=== PATIENT | male | born 1960 | race Caucasian/White ===

== ENCOUNTER 2018-12-14 09:43 | Emergency (ER) | payer MEDICAID, SELFPAY ==
[2018-12-14 09:46] VITALS: BP 150/111; PULSE 68; RESP 17; TEMP 36.6; O2SAT 97
--- NOTE | 2018-12-14 10:00 | EKG12_ITS ---
Test Reason : PALPS Blood Pressure : / mmHG Vent. Rate : 128 BPM Atrial Rate : 394 BPM P-R Int : 000 ms QRS Dur : 076 ms QT Int : 332 ms P-R-T Axes : 000 016 067 degrees QTc Int : 484 ms Atrial fibrillation with rapid ventricular response Abnormal ECG Confirmed by DWIGHT HERNANDEZ, LAZARO ([id number]), managing editor GUANAKITO CASH ([id number]) on 12/15/2018 1:22:03 PM Referred By: MIN Confirmed By:THEODORA QUINTANILLA MD
--- NOTE | 2018-12-14 10:04 | ED.RN ---
NO OLD EKG
--- NOTE | 2018-12-14 10:05 | RAD_ITS ---
STUDY: X-RAY CHEST REASON FOR EXAM: Male, 58 years old. Dyspnea. Arrhythmia. TECHNIQUE: Single AP portable view of the chest. COMPARISON: None. FINDINGS: EKG electrodes are seen. Increased markings at the lung bases worse at the left lung base. This may represent bibasilar atelectasis and/or early infiltrate. Follow-up is recommended. There is no demonstrated pleural abnormality. Normal size heart. Normal mediastinum and marielos. Normal visualized pulmonary arteries. Normal visualized aortic arch and descending thoracic aorta. Normal visualized thoracic spine. Normal visualized ribs, clavicles, and shoulders. There is no demonstrated abnormality of the visualized soft tissue structures of the upper abdomen. RAD/Chest 1 View (Portable) IMPRESSION: Increased markings at the lung bases worse on the left side as described. Follow-up is recommended. Electronically Signed: Tai Shearer, at 10:27 EDT , Service support ,
--- NOTE | 2018-12-14 10:09 | ED.DCSUM_ITS ---
- ER Visit Summary Date of Service: 12/14/18 Chief Complaint: [Palpitations] History of Present Illness: The patient is a 58 M [presents to the emergency department after being evaluated by primary care physician in the [facility]. Patient apparently has been without his Coumadin and has not taken his other medications for about a week. Patient was noted to be in A. fib RVR while in the office and referred to the ER. Patient also was complaining of chest pain shortness of breath and there was concern for PE. Patient states that his prior primary care physician was not responsive to his requests for medications and his records therefore he is making a switch to a new primary care physician. Patient states that he did not take his Coumadin for the last 6 days because he does not know what his Coumadin level was. He does complain of some chest congestion and a mild cough is mostly nonproductive. No significant chest pain otherwise. Patient denies recent travel or surgery. Patient does have history of hypertension, high cholesterol, A. fib, and history of skin cancer.] Physical Examination: [HEENT-PERRLA, EOMI. Cranial nerves II through XII grossly intact. TMs clear. Mucous membranes moist. No adenopathy. Cardiovascular-irregularly irregular and tachycardic with heart rates in the 140s. Murmurs auscultated. Lungs-clear to auscultation, chest wall stable without crepitus or subcu emphysema Abdomen-normoactive bowel sounds, soft, nontender, no rebound or rigidity, no peritoneal signs. Extremities-intact ?4, normal range of motion, normal pulses, atraumatic] Test Results: [EKG obtained on arrival showed atrial fibrillation with rapid ventricular response of 120 bpm with no acute segment changes. CBC with differential showing of 8.5, hemoglobin 14, hematocrit 46.5, platelets normal. Chemistries unremarkable. INR was 1.2. Troponin was less than 0.15. D-dimer was 0.77. CTA of the chest showed bilateral small effusions right greater than left and some bibasilar atelectasis versus infiltrate. Clinically I do not feel patient has pneumonia.] Emergency Department Course and Treatment: [She was given initially Cardizem 20 mg IV bolus followed by metoprolol 25 mill grams p.o. and his heart rates been in the 80s to 90s now.] Treatment Plan: [Patient has been noncompliant with his medications he is advised to get back on his Coumadin daily and have a repeat INR within the next 3 days. Patient to continue with his metoprolol and other medications which he has at home and has refills on. 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 It may contain incorrect words, spelling, and punctuation that were not noted in review of the chart prior to signing ED Disposition - Plan for ED Patient: Referrals: Erick Daily MD [Primary Care Provider] -
[2018-12-14] MEDS: 0.9% Normal Saline 1,000 ML 150 ML IV (10:27)
[2018-12-14] MEDS: dilTIAZem 25 MG/5 ML Vial 20 MG IV BOLUS (10:28)
[2018-12-14 10:32] VITALS: BP 146/91; PULSE 96; RESP 11; O2SAT 96
[2018-12-14 10:35] LABS: Absolute Neutrophil Count 6.3 X10^3/uL (2.0-7.7); Basophil# 0.03 X10^3/uL; Basophil% 0.4 % (0-1); Eosinophil# 0.14 X10^3/uL; Eosinophils% 1.6 % (0-5); Hematocrit 46.5 % (40-54); Hemoglobin 14.4 g/dL (13.0-16.5); Lymphocyte % 18.8 % (19-41); Mean Corpuscular Hgb 28.3 pg (27.0-32.0); Mean Corpuscular Volume 91.5 fL (80-94); Mean Platelet Vol. 11.6 fl (6.2-12.0); Monocyte# 0.47 X10^3/uL; Monocyte% 5.5 % (0-10); NRBC Flagged by Analyzer 0 % (0-5); Neutrophil # 6.26 X10^3/uL (2.7-7.7); Neutrophil % 73.5 % (47-70); Platelet Count 130 K/mm3 (150-450); RBC Distribution Width CV 14.2 % (11.6-14.6); Red Blood Count 5.08 M/mm3 (4.6-6.2); White Blood Count 8.5 K/mm3 (4.4-11.0)
[2018-12-14 10:36] LABS: International Normalized Ratio 1.2; Prothrombin Time (Protime)PT. 15.2 SECONDS (11.7-14.9)
[2018-12-14 10:40] LABS: D-Dimer Quantitative (DVT/PE) 0.77 FEU/ug/m (0.27-0.49)
--- NOTE | 2018-12-14 10:46 | CT_ITS ---
STUDY: CTA CHEST REASON FOR EXAM: Male, 58 years old. Dyspnea. Atrial fibrillation and hypertension. RADIATION DOSAGE (If Supplied By Facility): CTDIvol = ( 14.99 ) mGy, DLP = ( 550.10 ) mGycm TECHNIQUE: The examination was performed with the intravenous administration of 100 IV Isovue 370. Post-processing of the angiographic images was performed, with multiplanar reformation and 3D reconstruction. Individualized dose optimization techniques were used for this CT. COMPARISON: Comparison is made with prior chest radiograph done earlier today. FINDINGS: Small bilateral benign-appearing axillary lymph nodes. Normal enhancement of the main pulmonary artery and right and left pulmonary arteries. Normal enhancement of the bilateral peripheral pulmonary arteries. There is no demonstrated pulmonary embolism. There is atherosclerotic calcification of the aortic arch with tortuosity. There is no demonstrated aortic dissection. Normal heart and pericardium. There are visualized mediastinal lymph nodes, which are within normal size limits, and with normal morphology. Normal hilar regions. Normal visualized trachea and bronchi. The lungs are well expanded. Small bilateral pleural effusions right greater than left with bibasilar atelectasis and/or infiltrates. Normal pleura. Normal chest wall structures. There are degenerative changes of thoracic spine. Normal visualized upper abdomen. CT/CTA Chest W/WO Contrast IMPRESSION: Small bilateral pleural effusions right greater than left with bibasilar atelectasis and/or infiltrates. Electronically Signed: Tai Shearer, at 12:19 EDT , Service support ,
[2018-12-14 10:49] LABS: Anion Gap 4 (5-15); BUN 19 mg/dL (7-18); BUN/Creat Ratio 15.7 RATIO (10-20); Calcium,Total 8.9 mg/dL (8.5-10.1); Chloride 107 mmol/L (98-107); Creatinine, Serum 1.21 mg/dL (0.70-1.30); EST Glomerular Filtration Rate 65 mL/min (>60); Est Glom Filt Rate - Afr Amer 79 mL/min (>60); Glucose 103 mg/dL (74-106); Potassium 4.2 mmol/L (3.5-5.1); Sodium Level 140 mmol/L (136-145)
[2018-12-14] MEDS: Metoprolol Tartrate 25 MG Tablet PO (11:37)
[2018-12-14 12:00] VITALS: BP 152/111; PULSE 107; RESP 21; O2SAT 94
--- NOTE | 2018-12-14 12:43 | DCINST.ED_ITS ---
ED Disposition - Plan for ED Patient: Instructions: Atrial Fibrillation Referrals: Erick Daily MD [Primary Care Provider] - 3-5 Days Additional Instructions: see your traffic maintenance officer and take your medication regularly Have your coumadin level checked in 3 days
[2018-12-14 13:07] VITALS: BP 132/107; PULSE 96; RESP 25; O2SAT 92
== END 2018-12-14 13:21 | disposition home or self-care (01) ==
LOC: ED 10:27
PROVIDERS: Emergency Provider Emergency Medicine; Family Provider Family Medicine; PCP Family Medicine
DX: I48.2 Chronic atrial fibrillation (principal); J90 Pleural effusion, not elsewhere classified; Z91.14 Patient's other noncompliance with medication regimen; I10 Essential (primary) hypertension; E78.00 Pure hypercholesterolemia, unspecified; Z85.828 Personal history of other malignant neoplasm of skin; Z79.82 Long term (current) use of aspirin; Z79.01 Long term (current) use of anticoagulants; Z79.899 Other long term (current) drug therapy; F17.220 Nicotine dependence, chewing tobacco, uncomplicated
CPT/HCPCS: 71045; 71275; 80048; 84484; 85025; 85379; 85610; 93005; 96361; 96374; 99283; J7030; Q9967; A4216

== ENCOUNTER 2018-12-22 14:36 | Emergency (ER) | payer MEDICAID, SELFPAY ==
[2018-12-22 14:37] VITALS: BP 128/72; PULSE 89; RESP 16; TEMP 36.4; BMI 29.6
--- NOTE | 2018-12-22 15:04 | ED.DCSUM_ITS ---
History of Present Illness Chief Complaint: Abd Pain Informant: Patient Onset: Yesterday Narrative: Patient presents to the ED with reports of epigastric pain for 2 hours last night after eating. He states that the pain was sharp and constant. He took some ibuprofen. He went to bed and has been asymptomatic since. He states about a week ago, he was at this facility with a bout of atrial fibrillation with RVR. This was able to be controlled and he was able to be discharged home. He does take Coumadin and last had an INR checked 5 days ago. His next check is in 2 days. He denies any symptoms currently including chest pain, shortness of breath, abdominal pain, nausea, vomiting. He states that he is here because his PCP advised he be seen every time he has some time of chest pain. Past Medical History - Allergies and Home Meds Allergies/Adverse Reactions: Allergies No Known Allergies Allergy (Verified 12/22/18 14:39) Primary Care Physician: Erick Daily MD [Primary Care Provider] - Smoking Status: Current every day smoker Review of Systems General: Denies: Chills, Fever, Sweats Eyes: Denies: Visual changes - bilaterally, Diplopia ENT: Denies: Rhinorrhea, Sore throat Cardiovascular: Denies: Chest pain, Palpitations Respiratory: Denies: Dyspnea, Cough, Dyspnea on exertion Gastrointestinal: Reports: Abdominal pain - Epigastric. Denies: Nausea, Vomiting, Diarrhea, Melena, Hematochezia Genitourinary: Denies: Dysuria, Hematuria, Frequency Musculoskeletal: Denies: Back pain, Extremity Pain Skin: Denies: Rash, Wounds Neurological: Denies: Headache, Weakness, Numbness Physical Exam Vital Signs/Narrative: Vital Signs Temp Pulse Resp BP 12/22/18 14:37 97.5 F L 89 16 128/72 H General: Well nourished, Well developed, No Acute Distress Head: Normocephalic, Atraumatic Eyes: Perrl, EOMI ENT: Moist mucous membranes, No rhinorrhea Neck: Supple, Nontender Cardiovascular: Regular rate, Regular rhythm, No murmurs Respiratory: No distress, CTA bilaterally, Chest nontender Abdomen: Soft, Nondistended, Normal bowel sounds, Tender - Epigastric Back: Nontender, Normal Inspection Extremities: Nontender, No edema Skin: Normal color, No rash Neurological: Alert, Oriented x3, Cranial nerves II-XII grossly intact, Normal Strength, Normal Sensation Psychological: Normal affect, Normal Mood Diagnostic/Tx/Re-eval - EKG Initial EKG Interpretation: Atrial Fibrillation - With competing junctional pacemaker. QTc 467. No STEMI - Medical Decision Making Presents to the ED with epigastric pain for 2 hours last night and has been asymptomatic since then. He appears well and nontoxic. He has some mild epigastric tenderness to palpation on physical exam. EKG is unremarkable other than atrial fibrillation which patient is established with material distributor for. Troponin negative. Patient was given a GI cocktail. At this time, I think it is safe for the patient be discharged home. He was educated on return precautions to the ED. He was provided discharge instructions and agreeable to plan. Impression: Epigastric pain, uncertain etiology Disposition: Stable ED Disposition - Plan for ED Patient: Disposition: Home or Assisted Living Diagnosis: Epigastric pain Instructions: EPIGASTRIC PAIN (Uncertain cause) Referrals: Erick Daily MD [Primary Care Provider] -
--- NOTE | 2018-12-22 15:07 | EKG12_ITS ---
Test Reason : ABNL PAIN Blood Pressure : / mmHG Vent. Rate : 078 BPM Atrial Rate : 326 BPM P-R Int : 000 ms QRS Dur : 084 ms QT Int : 410 ms P-R-T Axes : 000 -02 033 degrees QTc Int : 467 ms Atrial fibrillation Septal MA, Age undetermined, cannot be excluded Abnormal ECG Confirmed by GLENNY HERNANDEZ, TERESSA ([id number]), pictures editor BREANNA THOMAS ([id number]) on 12/25/2018 3:16:58 PM Referred By: WICHO Confirmed By:TERESSA MURRIETA MD
[2018-12-22] MEDS: Mag Hydrox/Al Hydrox/Simeth 30 ML UDC PO (15:12)
[2018-12-22 15:53] VITALS: BP 121/96; PULSE 86; RESP 18; O2SAT 97
== END 2018-12-22 15:56 | disposition home or self-care (01) ==
PROVIDERS: Emergency Provider Physician Assistant; Family Provider Family Medicine; PCP Family Medicine
DX: R10.13 Epigastric pain (principal); I48.91 Unspecified atrial fibrillation; Z79.01 Long term (current) use of anticoagulants; Z79.82 Long term (current) use of aspirin; Z79.899 Other long term (current) drug therapy; F17.200 Nicotine dependence, unspecified, uncomplicated
CPT/HCPCS: 84484; 93005; 99282; A4216

== ENCOUNTER → 2023-07-22 | Outpatient (CLI) | payer MEDICAID, SELFPAY ==
--- NOTE | 2023-07-22 07:28 | MRI_ITS ---
STUDY: MRI LEFT SHOULDER REASON FOR EXAM: Male, 63 years old. Strain. TECHNIQUE: Standardized fat and water weighted pulse sequences were obtained in all 3 orthogonal planes. COMPARISON: None. FINDINGS: There is a suspected full-thickness tear of the anterior distal supraspinatus tendon insertion, overall measuring 6 mm in length (coronal T2 series 5 image 7) and 5 mm in width (axial T2 series 3 image 8). Normal infraspinatus tendon. There is subscapularis tendinosis. Normal teres minor tendon. Normal supraspinatus muscle. Normal infraspinatus muscle. Normal subscapularis muscle. Normal teres minor muscle. There is a tear of the posterior glenoid labrum (axial PD series 2 images 11-16). Normal glenohumeral articulation. Normal humeral head and visualized proximal humerus. Normal biceps labral complex. Normal intracapsular long biceps tendon. Normal rotator interval. There is hypertrophic acromioclavicular arthrosis, with inferior osteophyte formation, with mild effacement of the supraspinatus myotendinous junction (coronal PD series 4 image 6). There is a Type II morphology (curved), with a neutral orientation. There is a small amount of subacromial-subdeltoid bursal fluid. Normal visualized coracohumeral and coracoacromial ligaments. Normal quadrilateral space. Normal axillary space. Normal deltoid muscle. Normal trapezius muscle. MRI/Upper Ext Joint Only(Routine) IMPRESSION: Suspected 6 x 5 mm full-thickness tear of the anterior distal supraspinatus tendon insertion. Subscapularis tendinosis. Hypertrophic acromioclavicular arthrosis, with inferior osteophyte formation, with mild effacement of the supraspinatus myotendinous junction. Small amount of subacromial-subdeltoid bursal fluid. Tear of the posterior glenoid labrum. Electronically Signed: Scott Saucedo MD at 10:54 EDT ,
== END | disposition home or self-care (01) ==
PROVIDERS: PCP Family Medicine; Referring Provider Nurse Practitioner Family; Visit Provider Nurse Practitioner Family
DX: S46.912A Strain of unspecified muscle, fascia and tendon at shoulder and upper arm level, left arm, initial encounter (principal)
CPT/HCPCS: 73221

== ENCOUNTER 2024-03-17 12:40 | Emergency (ER) | payer MEDICAID, SELFPAY ==
[2024-03-17 12:41] VITALS: BP 142/81; PULSE 94; RESP 18; TEMP 35.9; O2SAT 100; BMI 34.9
--- NOTE | 2024-03-17 13:13 | EKG12_ITS ---
Test Reason : GENERAL Blood Pressure : */* mmHG Vent. Rate : 88 BPM Atrial Rate : * BPM P-R Int : * ms QRS Dur : 86 ms QT Int : 348 ms P-R-T Axes : * 6 70 degrees QTcB Int : 421 ms Atrial fibrillation Nonspecific ST and T wave abnormality Abnormal ECG Confirmed by KRISTA HERNANDEZ, RAYO ([id number]), make up editor TOD DURAN ([id number]) on 03/19/2024 6:33:25 AM Referred By: Confirmed By: RAYO VELASCO MD
--- NOTE | 2024-03-17 13:13 | RAD_ITS ---
EXAM: XR CHEST, 1 VIEW CLINICAL INDICATION: dyspnea TECHNIQUE: Frontal view of the chest. COMPARISON: XR Chest dated 12/14/2018 FINDINGS: LUNGS AND PLEURAL SPACES: No pulmonary consolidation. No pleural effusion or pneumothorax. HEART: Stable borderline cardiomegaly. MEDIASTINUM: No mediastinal or hilar mass. BONES/JOINTS: No acute abnormality. RAD/Chest 1 View (Portable) IMPRESSION: No acute cardiopulmonary abnormality. Electronically Signed: Cruz Braun MD at 15:28 EST ,
[2024-03-17] MEDS: Ondansetron 4 MG/2 ML Vial IV (13:26)
[2024-03-17] MEDS: Morphine 4 MG/ML Syringe IV (13:27)
--- NOTE | 2024-03-17 13:27 | EDS_ITS ---
<Statement entered by Julio C Reyna DO - 03/17/24 16:57> Patient was seen and examined with nurse vicky Dorsey All components of the history and physical confirmed and agreed. History of present illness and physical exam: Patient is a 63-year-old male with past medical history of atrial fibrillation on Xarelto who presents to the emergency department the chief complaint of worsening left shoulder pain. He states that this been going on for a significant mount time and noted that over the last several weeks he has also noted that he is having some left-sided chest discomfort and some shortness of breath. He states he has been compliant with his anticoagulation. He states that he had a cortisone shot in the past in his shoulder and this helped his symptoms. He states that he is scheduled to see his orthopedic doctor in 2 days. Patient states that he had a stress test approximately at least 4 years ago. Review of systems: Agree with above Physical exam: Agree with above MDM patient is a 63-year-old male who presented to the emerged part with a chief complaint of left shoulder pain. Patient will have a workup performed here on the differential diagnose includes but not limited to rotator cuff tear, cervical radiculopathy, ACS, stable angina once the workup is obtained reviewed he will be reevaluated. Patient's CBC was reviewed and showed a white blood count of 14,000, hemoglobin was stable at 15.9, platelet count normal at 167. Patient sodium normal at 138, potassium was low at 3 he was given 40 mill equivalents of potassium suppleme ntation here, creatinine normal at 1.05. Patient's troponin was obtained and was normal at 5 with a delta troponin obtained normal at 5. Patient's EKG reviewed and independently interpreted by myself. Patient's case was discussed with cardiology Dr. Acevedo by nurse practitioner Willian who states that the patient can follow-up with his orthopedic doctor in outpatient setting and have a outpatient stress test. Patient was encouraged to return with worsening symptoms or other concerns. He is agreeable to plan. Patient was given short prescription of pain medication for home. All question concerns answered bedside significant other bedside is agreeable this plan. Final impression: Left shoulder pain Chest pain Disposition: Patient will be discharged home in stable condition Supervising attending attestation: Julio C Ryena D.O. [facility] History of Present Illness Chief Complaint: Upper Extremity Injury Narrative Narrative: Patient is a 63-year-old male with history of atrial fibrillation, on anticoagulation medicine who presents to the [facility] for complaints of worsening left shoulder pain, as well as some pain going to his chest. He has noticed over the last several weeks, is been having left-sided chest pain as well as shortness of breath. Patient thinks is coming from his shoulder however he is unsure. Patient denies any fever chills nausea or vomiting. He does see his orthopedic in 2 days. [facility] Medical History Left rotator cuff tear Left shoulder pain Home Medications ?Medication ?Instructions ?Recorded ?Last Taken ?Type amlodipine 10 mg tablet 10 mg PO DAILY 12/14/18 Unknown History aspirin 81 mg tablet,delayed 81 mg PO DAILY 12/14/18 Unknown History release atorvastatin 20 mg tablet 20 mg PO QHS 12/14/18 Unknown History cetirizine 10 mg capsule 10 mg PO DAILY 12/14/18 Unknown History hydrochlorothiazide 25 mg tablet 25 mg PO DAILY 12/14/18 Unknown History lisinopril 5 mg tablet 5 mg PO DAILY 12/14/18 Unknown History metoprolol tartrate 50 mg tablet 50 mg PO DAILY 12/14/18 Unknown History gabapentin 600 mg tablet 600 mg PO DAILY 09/06/23 Unknown History rivaroxaban 20 mg tablet (Xarelto) 20 mg PO QDAY 09/06/23 Unknown History tizanidine 4 mg capsule 4 mg PO QHS PRN 09/06/23 Unknown History oxycodone-acetaminophen 5 mg-325 1 tab PO Q8H PRN pain 3 days #10 03/17/24 Unknown Rx mg tablet (Percocet) tabs Allergy/AdvReac Type Severity Reaction Status Date / Time No Known Allergies Allergy Verified 03/17/24 12:46 Family History Other Cancer Hypertension Surgical History H/O shoulder surgery Social History Smoking Status: Current every day smoker tobacco type: cigarettes alcohol intake: current alcohol intake frequency: holidays/special occasions only ROS ROS ED ROS Narrative Constitutional: Negative for fever, chills, weight loss, weakness Eyes: Negative for vision loss, vision change, double vision ENT: Negative for any sore throat, ear pain, congestion Cardiovascular: Negative for any tightness, palpitations. Positive for chest pain Respiratory: Negative for any cough, sputum production, hemoptysis, dyspnea on exertion, orthopnea. Positive for dyspnea Gastrointestinal: Negative for any abdominal pain, nausea, vomiting, diarrhea, constipation, blood in stool, blood in vomit : Negative for any urinary frequency, dysuria, retention, blood in urine Muscle skeletal: Negative for any neck pain, back pain. Positive for left shoulder pain Neurological: Negative for any headache, syncope, dizziness Skin: Negative for any rashes, itching, abrasions, lacerations Psychiatric: Negative for any depression, anxiety, stress, suicidal ideation, homicidal ideation Hematologic: Negative for any excessive bruising, easy bleeding EXAM Physical Exam Narrative Exam Narrative: Vital signs reviewed. HEET: Head normocephalic atraumatic, TMs clear bilaterally. Posterior pharynx is clear, moist mucous membranes. Nares clear bilaterally. Neck: Supple with no lymphadenopathy or tenderness. No signs of meningismus. Cardiac: Regular rate and rhythm no murmurs gallops or rubs, equal peripheral pulses bilaterally. Respiratory: Lungs clear to auscultation bilaterally. No chest tenderness. Abdomen: Soft, nontender, nondistended. No abdominal bruit or pulsatile masses. No hepatosplenomegaly Extremities: No peripheral edema, no signs of gross trauma or deformity. Decreased range of motion to the left shoulder. Pain on palpation to the anterior aspect. Pain can go down his left arm. Equal keypuncher strength. Neuro: Cranial nerves II through XII intact, no focal neurological deficits. Skin: Clean dry and intact with no rash, purpura, petechiae, vesicles or pustules. Backs/flank: No CVA tenderness, no midline spinal tenderness, no deformity. Psych: Normal mood and affect. No SI, HI or acute psychosis. Const Vital Signs: 03/17/24 12:41 Temperature 96.7 F L Temperature Source Temporal Pulse Rate 94 Respiratory Rate 18 Blood Pressure 142/81 H Blood Pressure Mean 101 Pulse Ox 100 Oxygen Delivery Method Room Air [facility] EKG Atrial fibrillation: Attestation: I personally reviewed and interpreted this EKG as follows: Interpretation: Atrial Fibrillation Comments: Atrial fibrillation with a rate of 88 bpm, QRS duration 86 ms, no acute ST elevation, no acute infarct noted. Treatment and Re-Evaluation Narrative: Differential diagnosis includes however is not limited to: Internal derangement, left shoulder, rotator cuff, cervical radiculopathy, ACS, [place], unstable angina Patient appears generally well, vital signs are stable, patient is nontoxic- appearing. Presenting to the emergency department for complaints of left shoulder pain all her concerns for left-sided chest pain. I spoke with the patient at length, I do believe this is muscle skeletal in nature. Patient does have close follow-up with his orthopedic in 2 to 3 days. Patient will be given an IV, IV morphine, Zofran he will be reevaluated. Basic laboratory values as well as EKG will be obtained. Chest x-ray will be ordered. All radiologic examinations were read, reviewed by the emergency department attending. From these reads, a plan of care will be put in place. Patient's laboratory values showed a slight leukocytosis with a white blood count of 14.5 however this is secondary the patient currently being on steroids for his left shoulder. Patient's chemistries show a slight low potassium at 3.0, I was able to provide the patient with potassium orally. Initial troponin was 5, repeat was 5. Patient's urinalysis does show a stable A-fib. Patient has not had a stress test since 2016. I will reach out to cardiology for evaluation with close follow-up. Spoke with cardiology, at this time, patient will follow-up outpatient. I spoke with the patient regarding this, he is agreeable. Patient will also continue to follow-up with his orthopedic doctor next 2 to 3 days. All questions were answered, patient stable for discharge. Patient be given a short course of pain medicine for home. Discharge Plan Triage Chief Complaint: Upper Extremity Injury ED Midlevel Provider: Willian Vivar ED Provider: Julio C Reyna Dx/Rx/DC Orders Clinical Impression: Left shoulder pain, Chest pain Instructions: ED Arthralgia, ED Chest Pain, Uncertain Cause, ED Shoulder Pain, Uncertain Cause Prescriptions: New oxycodone-acetaminophen [Percocet] 5-325 mg tablet 1 tab PO Q8H PRN (Reason: pain) 3 Days Qty: 10 0RF No Action Xarelto 20 mg tablet 20 mg PO QDAY tizanidine 4 mg capsule 4 mg PO QHS PRN gabapentin 600 mg tablet 600 mg PO DAILY atorvastatin 20 MG tablet 20 mg PO QHS aspirin 81 MG tablet,delayed release (DR/EC) 81 mg PO DAILY amlodipine 10 MG tablet 10 mg PO DAILY metoprolol tartrate 50 MG tablet 50 mg PO DAILY lisinopril 5 MG tablet 5 mg PO DAILY hydrochlorothiazide 25 MG tablet 25 mg PO DAILY cetirizine 10 MG capsule 10 mg PO DAILY Primary Care Provider: Erick Daily Referrals: Johnnie Acevedo MD [Med Staff - Active Staff] - Erick Daily MD [Primary Care Provider] - Activity Restrictions/Additional Instructions: Please follow-up outpatient. You need to return for any worsening chest pain. Continue following up with orthopedic. Print Language: Citizen Of [place] Disposition Disposition: Home, Self Care
[2024-03-17 13:52] LABS: Anion Gap 5 (5-15); BUN 27 mg/dL (7-18); BUN/Creat Ratio 25.7 RATIO (10-20); Calcium,Total 9.3 mg/dL (8.5-10.1); Chloride 102 mmol/L (98-107); Creatinine, Serum 1.05 mg/dL (0.70-1.30); EST Glomerular Filtration Rate 75 mL/min (>60); Est Glom Filt Rate - Afr Amer 91 mL/min (>60); Estimated Creatinine Clearance 88.54 ml/min; Glucose 129 mg/dL (74-106); Sodium Level 138 mmol/L (136-145); Troponin-I HS 5 pg/mL (3.0-78.0)
[2024-03-17 14:02] LABS: Absolute Lymphocyte Count 2.04 X10^3/uL (0.83-4.51); Absolute Neutrophil Count 10.7 X10^3/uL (2.0-7.7); Basophil# 0.11 X10^3/uL; Basophil% 0.8 % (0-1); Eosinophil# 0.09 X10^3/uL; Eosinophils% 0.6 % (0-5); Hematocrit 48.2 % (40-54); Hemoglobin 15.9 g/dL (13.0-16.5); Lymphocyte # 2.04 X10^3/ul (0.83-4.51); Lymphocyte % 14.1 % (19-41); Mean Corpuscular Hgb 29.1 pg (27.0-32.0); Mean Corpuscular Volume 88.1 fL (80-94); Mean Platelet Vol. 11.3 fl (6.2-12.0); Monocyte% 8.3 % (0-10); NRBC Flagged by Analyzer 0 % (0-5); Neutrophil # 10.71 X10^3/uL (2.7-7.7); Neutrophil % 73.7 % (47-70); Platelet Count 167 K/mm3 (150-450); RBC Distribution Width CV 14.4 % (11.6-14.6); RBC Distribution Width SD 45.9 fl (35.1-43.9); Red Blood Count 5.47 M/mm3 (4.6-6.2); White Blood Count 14.5 K/mm3 (4.4-11.0)
[2024-03-17] MEDS: Potassium Chloride Oral Tablet 20 MEQ 40 MEQ PO (15:42)
[2024-03-17 16:29] LABS: Troponin-I HS 5 pg/mL (3.0-78.0)
[2024-03-17 16:41] VITALS: BP 146/98; PULSE 83; RESP 16; O2SAT 98
[2024-03-17 16:43] VITALS: BP 146/98; PULSE 83; RESP 16; TEMP 36.8; O2SAT 98
== END 2024-03-17 16:46 | disposition home or self-care (01) ==
PROVIDERS: Nurse Practitioner; Emergency Provider Emergency Medicine; PCP Family Medicine; Visit Provider Emergency Medicine
DX: R07.9 Chest pain, unspecified (principal); I48.91 Unspecified atrial fibrillation; M25.512 Pain in left shoulder; Z79.01 Long term (current) use of anticoagulants; F17.210 Nicotine dependence, cigarettes, uncomplicated
CPT/HCPCS: 71045; 80048; 84484; 85025; 93005; 96374; 96375; 99283; A4216; J2405

== ENCOUNTER → 2024-04-20 | Outpatient (CLI) | payer MEDICAID, SELFPAY ==
--- NOTE | 2024-04-20 13:35 | RAD_ITS ---
EXAM: XR CERVICAL SPINE, 2 OR 3 VIEWS CLINICAL INDICATION: Cervical radiculopathy TECHNIQUE: Frontal and lateral views of the cervical spine. COMPARISON: No relevant prior studies available. FINDINGS: VERTEBRAE: Loss of the normal cervical lordosis which may be due to muscle spasm or head positioning. No acute fracture or subluxation. Disc space narrowing and vertebral body hypertrophy noted at C5-6 and C6-7. Multilevel facet arthropathy. DISC SPACES: See above. SOFT TISSUES: Soft tissue calcification noted on the lateral view may be within the submandibular space. Salivary duct stone to BE excluded. No prevertebral soft tissue widening. LUNG APICES: Clear. OTHER FINDINGS: Nuchal calcification noted related to remote trauma. RAD/Cerv Spine 2 or 3 Views IMPRESSION: 1. No acute fracture or subluxation. 2. Loss of the normal cervical lordosis which may be due to muscle spasm or head positioning. 3. Disc space narrowing and vertebral body hypertrophy noted at C5-6 and C6-7. Multilevel facet arthropathy. 4. Soft tissue calcification noted on the lateral view may be within the submandibular space. Salivary duct stone to BE excluded. Electronically Signed: Cruz Braun MD at 11:07 EST ,
== END | disposition home or self-care (01) ==
LOC: RAD 13:27
PROVIDERS: PCP Nurse Practitioner Family; Referring Provider Anesthesiology; Visit Provider Anesthesiology
DX: M54.12 Radiculopathy, cervical region (principal)
CPT/HCPCS: 72040

== ENCOUNTER → 2024-07-17 | Outpatient (CLI) | payer MEDICAID, SELFPAY ==
[2024-07-17 17:30] LABS: ALB/GLOB Ratio 1.6 RATIO (0.9-2.4); AST(SGOT) 30 U/L (<=37); Alanine Aminotransfer ALT/SGPT 20 U/L (<=46); Albumin, Serum 4.3 g/dL (3.4-4.8); Alkaline Phosphatase 71 U/L (40-129); Anion Gap 15 (5-15); BUN 20 mg/dL (4-19); BUN/Creat Ratio 15.9 RATIO (10-20); Calcium,Total 9.7 mg/dL (7.6-11.0); Carbon Dioxide 24.8 mmol/L (21.0-32.0); Chloride 101 mmol/L (98-108); Cholesterol 116 mg/dL (<=200); Creatinine, Serum 1.27 mg/dL (0.70-1.20); EST Glomerular Filtration Rate 63 (>60); Globulin 2.7 g/dL (2.2-4.2); Glucose 104 mg/dL (70-99); High Density Lipoprotein 45 mg/dL; Low Density Lipoprotein Calc. 55 mg/dL; Potassium 3.3 mmol/L (3.3-5.1); Sodium Level 140 mmol/L (133-145); Total Bilirubin 0.87 mg/dL (0.00-1.30); Triglycerides 78 mg/dL; Very Low Density Lipoprotein 16 mg/dL (5-40); cholesterol:hdl ratio screen 2.56
== END | disposition home or self-care (01) ==
LOC: LAB 12:31
PROVIDERS: PCP Nurse Practitioner Family; Referring Provider Internal Medicine Cardiovascular Disease; Visit Provider Internal Medicine Cardiovascular Disease
DX: I10 Essential (primary) hypertension (principal); E78.5 Hyperlipidemia, unspecified
CPT/HCPCS: 36415; 80053; 80061

== ENCOUNTER → 2024-09-15 | Outpatient (CLI) | payer MEDICAID, SELFPAY ==
--- OUTSIDE RECORDS SUMMARY | 2024-09-15 07:19 | XMS RPT_ITS | CCD ---
Author Organization [facility] ion [facility] Care Team Providers Care Sheet Metal Helper Name Role Phone Erick Daily MD Primary Care Provider BOLIVAR ZAMARRIPA APRN Consulting Unavailable SERAFIN WILLIAM MD Admitting Unavailable SERAFIN WILLIAM MD Primary Care Unavailable SERAFIN WILLIAM MD Attending Unavailable PROVIDER, UNKNOWN Consulting Unavailable ARNULFO ALEJANDRO Admitting Unavailable ARNULFO ALEJANDRO Primary Care Unavailable ARNULFO ALEJANDRO Attending Unavailable BOLIVAR ZAMARRIPA APRN Consulting Unavailable PROVIDER, UNKNOWN Consulting Unavailable Chidi, Xenia Attending Unavailable Erick Daily Referring Unavailable Bolivar Zamarripa Primary Care Unavailabl Bolivar Edouard Primary Care Unavailabl e Chidi, Xenia Attending Unavailable Bolivar Zamarripa Referring UnavailFredrick Segovia Attending Unavailable Erick Daily Referring Unavailable Elderbromariam, Erick Primary Care Unavailable Johnnie Acevedo Attending Unavailable Killian, Erick Primary Care Unavailable Fredrick Santos Attending Unavailable Erick Daily Referring Unavailable Killian, Erick Primary Care Unavailable Fredrick Santos Attending Unavailable Erick Daily Referring Unavailable Elderbromariam, Erick Primary Care Unavailable Fredrick Santos Attending Unavailable Erick Daily Referring Unavailable Eldermarley, Erick Primary Care Unavailable Chidi, Xenia Attending Unavailable Bolivar Zamarripa Referring Unavailabl e Bolivar Zamarripa Primary Care UnavailFredrick Segovia Attending Unavailable Killian, Erick Primary Care Unavailable ElderErick roach Referring Unavailable Julio C Reyna Attending Unavailable Eldermarley, Erick Primary Care Unavailable Bolivar Zamarripa Primary Care Unavailabl e Chidi, Xenia Referring Unavailable Chidi, Xenia Attending Unavailable Serafin William Referring Unavailable Serafin William Attending Bolivar Gonzalez Primary Care Unavailabl e Medications Current Medications Medication Drug Class(es) Dates Sig (Normalized) Sig (Original) aspirin 81 mg delayed release oral tablet (1 source) Platelet Aggregation Inhibitor, Nonsteroidal Anti-inflammatory Drug Start: 12-14-2018 take 81 mg by mouth once daily Aspirin Active 81 MG PO DAILY December 14, 2018 12:00am cetirizine hydrochloride 10 mg oral capsule (1 source) Histamine-1 Receptor Antagonist Start: 12-14-2018 take 10 mg by mouth once daily Cetirizine Active 10 MG PO DAILY December 14, 2018 12:00am Completed/Discontinued Medications Medication Drug Class(es) Dates Sig (Normalized) Sig (Original) amLODIPine 10 mg oral tablet (2 sources) Dihydropyridine Calcium Channel Jayro Start: 12-15-19 take 1 tablet by mouth once daily amLODIPine (NORVASC) 10 mg tablet Indications: Hypertension, essential Take 1 tablet by mouth once daily. For Blood Pressure 90 tablet 3 12/26/2019 Active Comment on above: Take 1 tablet by reuben th once daily. For Blood Pressure atorvastatin 20 mg oral tablet (2 sources) HMG-CoA Reductase Inhibitor Start: 12-15-19 take 1 tablet by mouth once daily for hyperlipidemia atorvastatin (LIPITOR) 20 mg tablet Indications: Hyperlipidemia, mixed , Hypertension, essential Take 1 tablet by mouth once daily. For Cholesterol 90 tablet 3 12/26/2019 Active Comment on above: Take 1 tablet by reuben th once daily. For Cholesterol FLUoxetine 20 mg oral capsule (1 source) Serotonin Reuptake Inhibitor Start: 03-30-19 take 1 capsule by mouth once daily FLUoxetine (PROZAC) 20 mg capsule Indications: Irritability and anger Take 1 capsule by mouth once daily. 30 capsule 2 03/30/2019 Active Comment on above: Take 1 capsule by mo [facility] once daily. hydroCHLOROthiazide 25 mg oral tablet (2 sources) Thiazide Diuretic Start: 12-15-19 take 1 tablet by mouth once daily hydroCHLOROthiazide (HYDRODIURIL, ESIDRIX) 25 mg tablet Indications: Hypertension, essential Take 1 tablet by mouth once daily. For Blood Pressure 90 tablet 3 12/26/2019 Active Comment on above: Take 1 tablet by reuben th once daily. For Blood Pressure lisinopril 5 mg oral tablet (2 sources) Angiotensin Converting Enzyme Inhibitor Start: 12-15-19 take 1 tablet by mouth once daily lisinopril (ZESTRIL, PRINIVIL) 5 mg tablet Indications: Hypertension, essential Take 1 tablet by mouth once daily. For Blood Pressure 90 tablet 3 12/26/2019 Active Comment on above: Take 1 tablet by reuben th once daily. For Blood Pressure 24 hr metoprolol succinate 50 mg extended release oral tablet (2 sources) beta-Adrenergic Jayro Start: 12-26-19 take 1 tablet by mouth once daily metoprolol succinate ER (TOPROL XL) 50 mg 24 hr tablet Indications: Hypertension, essential Take 1 tablet by mouth once daily. For Blood Pressure 90 tablet 3 12/26/2019 Active Start: 12-14-2018 take 50 mg by mouth once daily Metoprolol Tartrate Active 50 MG PO DAILY December 14, 2018 12:00am Comment on above: Take 1 tablet by reuben th once daily. For Blood Pressure warfarin sodium 4 mg oral tablet (3 sources) Vitamin K Antagonist Start: 02-19-2019 take 1 tablet by mouth once daily warfarin (COUMADIN) 1 mg tablet Take 1 tablet by mouth daily as directed. 30 tablet 2 02/19/2019 Active Start: 12-14-2018 take 1 tablet by reuben th once daily warfarin (COUMADIN) 4 mg tablet Indications: Paroxysmal atrial fibrillation (HCC) Take 1 tablet by mouth once daily. Or as directed. 30 tablet 5 12/26/2019 Active Comment on above: Take 1 tablet by reuben th daily as directed. Take 1 tablet by reuben th once daily. Or as directed. Problems Active Problems Problem Classification Problem Date Documented Da te Episodic/Chronic Abdominal pain (1 source) Epigastric pain; Translations: [Epigastric pain] 12-23-2018 Episodic Cardiac dysrhythmias (3 sources) Paroxysmal atrial fibrillation; Translations: [Paroxysmal atrial fibrillation] Onset: 12-27-2018 12-27-2018 Chronic Disorders of lipid metabolism (3 sources) Hyperlipidemia; Translations: [Hyperlipidemia, unspecified] Onset: 07-19-2024 02-16-2019 Chronic Essential hypertension (3 sources) Hypertensive disorder; Translations: [Essential (primary) hypertension] Onset: 07-19-2024 02-16-2019 Chronic Other connective tissue disease (1 source) Complete rotator cuff tear or rupture of left shoulder, not specified as traumatic; Translations: [Complete rotator cuff tear or rupture of left shoulder, not specified as traumatic] Onset: 05-14-2024 Episodic Other nutritional; endocrine; and metabolic disorders (1 source) Obesity, unspecified; Translations: [Obesity, unspecified] Onset: 08-15-2024 Chronic Peripheral and visceral atherosclerosis (1 source) Unspecified atherosclerosis; Translations: [Unspecified atherosclerosis] Onset: 08-15-2024 Chronic Residual codes; unclassified (1 source) Obstructive sleep apnea syndrome; Translations: [Obstructive sleep apnea (adult) (pediatric)] 02-16-2019 Chronic Residual codes; unclassified (1 source) Obstructive sleep apnea (adult) (pediatric); Translations: [Obstructive sleep apnea (adult) (pediatric)] Onset: 08-15-2024 Chronic Substance-related disorders (1 source) Nicotine dependence, unspecified, uncomplicated; Translations: [Nicotine dependence, unspecified, uncomplicated] Onset: 08-15-2024 Chronic Unclassified (1 source) Chronic atrial fibrillation, unspecified; Translations: [Chronic atrial fibrillation, unspecified] Onset: 08-15-2024 Unclassified (1 source) Other persistent atrial fibrillation; Translations: [Other persistent atrial fibrillation] Onset: 08-15-2024 Past or Other Problems Problem Classification Problem Date Documented Da te Episodic/Chronic Nonspecific chest pain (1 source) Chest pain, unspecified; Translations: [Chest pain, unspecified] Onset: 04-18-2024 Episodic Other aftercare (1 source) Drug therapy finding; Translations: [Encounter for therapeutic drug level monitoring] Onset: 12-27-2018 12-27-2018 Episodic Other connective tissue disease (1 source) Unspecified rotator cuff tear or rupture of left shoulder, not specified as traumatic; Translations: [Unspecified rotator cuff tear or rupture of left shoulder, not specified as traumatic] Onset: 03-20-2024 Episodic Other non-epithelial cancer of skin (1 source) Squamous cell carcinoma of skin of trunk; Translations: [Squamous cell carcinoma of skin of other part of trunk] Onset: 12-27-2018 12-27-2018 Episodic Other non-traumatic joint disorders (1 source) Pain in left shoulder; Translations: [Pain in left shoulder] Onset: 01-19-2024 Episodic Spondylosis; intervertebral disc disorders; other back problems (4 sources) Radiculopathy, cervical region; Translations: [Radiculopathy, cervical region] Onset: 05-11-2024 Episodic Results Test Name Value Interpretation Reference Range Facility CBC + DIFFon 07-19-2024 Baso # 0.02 x10EE3/UL Normal 0.00 - 0.10 [facility] Comment on above: Performed By: #### 2 [id number] #### [facility],[address] [place] [address] 02033 Basophils/100 WBC (Bld) 0.3 % Normal 0.0 - 2.0 [facility] Comment on above: Performed By: #### 2 03150 #### [facility],[address] [place] [address] 29100 CBC + DIFF Normal [facility] Comment on above: Result Comment: CBC- COMPLETE BLOOD COUNT Performed By: #### 2 [id number] #### [facility],[address] [place] [address] 85098 EO # 0.17 x10EE3/UL Normal 0.00 - 0.50 [facility] Comment on above: Performed By: #### 2 27327 #### [facility],[address] [place] [address] 68607 Eosinophils/100 WBC (Bld) 2.6 % Normal 0.0 - 7.0 [facility] Comment on above: Performed By: #### 2 13103 #### [facility],[address] [place] [address] 46238 Erythrocyte distribution width (RBC) [Ratio] 13.5 % Normal 12.0 - 15.6 [facility] Comment on above: Performed By: #### 2 17928 #### [facility],[address] [place] [address] 85842 Hematocrit (Bld) [Volume fraction] 42.6 % Normal 40.0 - 52.0 [facility] Comment on above: Performed By: #### 2 21596 #### [facility],[address] [place] [address] 99826 Hemoglobin (Bld) [Mass/Vol] 14.7 g/dL Normal 13.0 - 17.5 [facility] Comment on above: Performed By: #### 2 38905 #### [facility],[address] [place] [address] 76827 Lymph # 1.61 x10EE3/UL Normal 0.80 - 2.80 [facility] Comment on above: Performed By: #### 2 94299 #### [facility],[address] [place], [place] [address] Lymphocytes/100 WBC (Bld) 24.2 % Normal 20.0 - 45.0 [facility] Comment on above: Performed By: #### 2 71461 #### [facility],[address] [place], [place] [address] MANUAL DIFF N/A Normal [facility] Comment on above: Performed By: #### 2 81594 #### [facility],[address] [place] [address] MCH (RBC) [Entitic mass] 30 pg Normal 27 - 33 [facility] Comment on above: Performed By: #### 2 35075 #### [facility],[address] [place] [address]21 MCHC 34 X10 3 Normal 32 - 36 [facility] Comment on above: Performed By: #### 2 72783 #### [facility],[address] [place] [address] 13277 MCV (RBC) [Entitic vol] 87 fL Normal 81 - 98 [facility] Comment on above: Performed By: #### 2 30589 #### [facility],[address] [place] [address] 76635 Winona # 0.55 x10EE3/UL Normal 0.20 - 1.00 [facility] Comment on above: Performed By: #### 2 87774 #### [facility],[address] [place] [address] 46389 MONOS % 8.3 % Normal 0.0 - 10.0 [facility] Comment on above: Performed By: #### 2 53271 #### [facility],[address] [place] [address] 50258 Morphology Jose (Bld) [Interp] N/A Normal [facility] Comment on above: Performed By: #### 2 72510 #### [facility],[address] [place] [address] 87504 Neut # 4.32 x10EE3/UL Normal 1.50 - 7.10 [facility] Comment on above: Performed By: #### 2 24982 #### [facility],[address] [place] [address] 81718 Neutrophils/100 WBC (Bld) 64.7 % Normal 46.0 - 76.0 [facility] Comment on above: Performed By: #### 2 01394 #### [facility],[address] [place] [address] 85677 PLATELET 165 x10EE3/UL Normal 150 - 450 [facility] Comment on above: Performed By: #### 2 74125 #### [facility],[address] [place] [address] 26934 Platelet mean volume (Bld) [Entitic vol] 10.9 fL High 6.4 - 10.5 [facility] Comment on above: Result Comment: AUTO MATED DIFFERENTIAL Performed By: #### 2 75503 #### [facility],[address] [place] [address] 90253 RBC 4.90 x 10EE6/UL Normal 4.50 - 6.00 [facility] Comment on above: Performed By: #### 2 07128 #### [facility],[address] [place] [address] 61002 WBC 6.7 x 10EE3/UL Normal 4.5 - 10.8 [facility] Comment on above: Performed By: #### 2 35517 #### [facility],[address] [place] [address] 89758 CMP with eGFRon 04-24-2025 AGE 64 years Normal [facility] Comment on above: Performed By: #### 2 37964 #### [facility],[address] [place] [address] 83164 Albumin [Mass/Vol] 3.9 g/dL Normal 3.4 - 5.0 [facility] Comment on above: Performed By: #### 2 72223 #### [facility],[address] [place] [address] 23038 Albumin/Globulin [Mass ratio] 1.3 {ratio} Normal 0.9 - 1.6 [facility] Comment on above: Performed By: #### 2 42682 #### [facility],[address] [place] [address] 34896 ALK PHOS 81 U/L Normal 46 - 116 [facility] Comment on above: Performed By: #### 2 97270 #### [facility],[address] [place] [address] 81927 ALT [Catalytic activity/Vol] 29 U/L Normal 16 - 63 [facility] Comment on above: Performed By: #### 2 71632 #### [facility],[address] [place] [address] 25214 Anion gap [Moles/Vol] 13 mmol/L Normal 10 - 20 [facility] Comment on above: Performed By: #### 2 19333 #### [facility],[address] [place] [address] 02055 AST [Catalytic activity/Vol] 29 U/L Normal 15 - 37 [facility] Comment on above: Performed By: #### 2 47149 #### [facility],[address] [place] [address] 51900 B/C RATIO 21 ratio Normal 0 - 30 [facility] Comment on above: Performed By: #### 2 96578 #### [facility],[address] [place] [address] 74523 Bilirubin [Mass/Vol] 0.9 mg/dL Normal 0.2 - 1.0 [facility] Comment on above: Performed By: #### 2 37882 #### [place] [address] Calcium [Mass/Vol] 9.3 mg/dL Normal 8.5 - 10.1 [facility] Comment on above: Performed By: #### 2 84584 #### [facility],[address] [place] [address] Chloride [Moles/Vol] 106 mmol/L Normal 98 - 107 [facility] Comment on above: Performed By: #### 2 94326 #### [place] [address] CMP with eGFR Normal [facility] Comment on above: Result Comment: COMP REHENSIVE METABOLIC PANEL Performed By: #### 2 97333 #### [place] [address] CO2 [Moles/Vol] 28.8 mmol/L Normal 21.0 - 32.0 [facility] Comment on above: Performed By: #### 2 78042 #### [place] [address] Creatinine [Mass/Vol] 1.10 mg/dL Normal 0.70 - 1.30 [facility] Comment on above: Performed By: #### 2 01257 #### [place] [address] GFR/1.73 sq M.predicted among non-blacks MDRD (S/P/Bld) [Vol rate/Area] mL/min/{1.73_m2} Normal 60 - 999 [facility] Comment on above: Performed By: #### 2 03507 #### [place] [address] Result Comment: ACCO RDING TO THE NATIONAL KIDNEY DISEASE EDUCATION PROGRAM(NKDE), A NORMAL eGFR IS A VALUE GREATER THAN OR EQUAL TO 60 ML/MIN/1.73 SQ METERS. CHRONIC KIDNEY DISEASE: <60mL/MIN/1.73 SQ METERS KIDNEY FAILURE: <15mL/MIN/1.73 SQ METERS THIS TEST SHOULD ONLY BE USED FOR PATIENTS 18 YEARS OF AGE AND OLDER. Globulin (S) [Mass/Vol] 3.1 g/dL Normal 1.5 - 3.8 [facility] Comment on above: Performed By: #### 2 83197 #### [address] [address] Glucose [Mass/Vol] 103 mg/dL Normal 74 - 106 [facility] Comment on above: Performed By: #### 2 66484 #### [address] [address] Potassium [Moles/Vol] 3.3 mmol/L Low 3.5 - 5.1 [facility] Comment on above: Performed By: #### 2 07583 #### [address] [address] Protein [Mass/Vol] 7.0 g/dL Normal 6.4 - 8.2 [facility] Comment on above: Performed By: #### 2 74646 #### [address] [address] Sodium [Moles/Vol] 144 mmol/L Normal 136 - 145 [facility] Comment on above: Performed By: #### 2 12259 #### [address] [address] Urea nitrogen [Mass/Vol] 23 mg/dL High 7 - 18 [facility] Comment on above: Performed By: #### 2 21022 #### [address] [address] LIPID PROFILEon 07-19-2024 Cholesterol [Mass/Vol] 111 mg/dL Normal 0 - 240 [facility] Comment on above: Performed By: #### 2 38539 #### [facility],[address] [place] [address] 96328 Cholesterol in HDL [Mass/Vol] 53 mg/dL Normal 40 - 60 [facility] Comment on above: Performed By: #### 2 71854 #### [facility],[address] [place] [address] 32803 Cholesterol in LDL [Mass/Vol] 45 mg/dL Normal 0 - 129 [facility] Comment on above: Performed By: #### 2 14417 #### [facility],[address] [place] [address] 18289 Cholesterol.total/Chol esterol in HDL [Mass ratio] 2.1 {ratio} Normal 0.0 - 5.0 [facility] Comment on above: Performed By: #### 2 60732 #### [facility],[address] [place] [address] 75144 Lipid 1996 panel Normal [facility] Comment on above: Result Comment: LIPI D PROFILE Performed By: #### 2 74704 #### [facility],[address] [place] [address]15 Triglyceride [Mass/Vol] 67 mg/dL Normal 0 - 150 [facility] Comment on above: Performed By: #### 2 36582 #### [facility],[address] [place] [address] 27154 Comprehensive Metabolic Prof [facility] 07-17-2024 Albumin [Mass/Vol] 4.3 g/dL Normal 3.4-4.8 [facility] Comment on above: Performed By: #### L 500.4100, L500.4050 #### [facility] [address] [place], [address] Albumin/Globulin [Mass ratio] 1.6 {ratio} Normal 0.9-2.4 [facility] Comment on above: Performed By: #### L 500.4100, [id number] #### [facility] [address] [place], [address] ALK PHOS 71 U/L Normal 40-129 [facility] Comment on above: Performed By: #### L 500.4100, [id number] #### [facility] [address] [place], [address] ALT [Catalytic activity/Vol] 20 U/L Normal <=46 [facility] Comment on above: Performed By: #### L 500.4100, [id number] #### [facility] [address] [place], [address] AST [Catalytic activity/Vol] 30 U/L Normal <=37 [facility] Comment on above: Performed By: #### L 500.4100, [id number] #### [facility] [address] [place], [address] Bilirubin [Mass/Vol] 0.87 mg/dL Normal 0.00-1.30 [facility] Comment on above: Performed By: #### L 500.4100, [id number] #### [facility] [address] [place], [address] BUN/CRE 15.9 RATIO Normal 10-20 [facility] Comment on above: Performed By: #### L 500.4100, [id number] #### [facility] [address] [place], [address] Calcium [Mass/Vol] 9.7 mg/dL Normal 7.6-11.0 [facility] Comment on above: Performed By: #### L 500.4100, [id number] #### [facility] [address] [place], [address] Chloride [Moles/Vol] 101 mmol/L Normal 98-108 [facility] Comment on above: Performed By: #### L 500.4100, [id number] #### [facility] [address] [place], [address] CO2 [Moles/Vol] 24.8 mmol/L Normal 21.0-32.0 [facility] Comment on above: Performed By: #### L 500.4100, [id number] #### [facility] [address] [place], [address] Creatinine [Mass/Vol] 1.27 mg/dL High 0.70-1.20 [facility] Comment on above: Performed By: #### L 500.4100, [id number] #### [facility] [address] [place], [address] GAP 15 Normal 5-15 [facility] Comment on above: Performed By: #### L 500.4100, [id number] #### [facility] [address] [place], [address] GFR/1.73 sq M.predicted among non-blacks MDRD (S/P/Bld) [Vol rate/Area] 63 mL/min/{1.73_m2} Normal >60 [facility] Comment on above: Result Comment: mL/m in/1.73m2 CKD-EPI Creatinine Equation (2020) Performed By: #### L 500.4100, [id number] #### [facility] [address] [place], [address] Globulin (S) [Mass/Vol] 2.7 g/dL Normal 2.2-4.2 [facility] Comment on above: Performed By: #### L 500.4100, [id number] #### [facility] [address] [place], [address] Glucose [Mass/Vol] 104 mg/dL High 70-99 [facility] Comment on above: Performed By: #### L 500.4100, [id number] #### [facility] [address] [place], [address] Potassium [Moles/Vol] 3.3 mmol/L Normal 3.3-5.1 [facility] Comment on above: Performed By: #### L 500.4100, [id number] #### [facility] [address] [place], [address] Sodium [Moles/Vol] 140 mmol/L Normal 133-145 [facility] Comment on above: Performed By: #### L 500.4100, [id number] #### [facility] [address] [place], [address] T PROT 7.0 g/dL Normal 5.9-8.4 [facility] Comment on above: Performed By: #### L 500.4100, [id number] #### [facility] [address] [place], [address] Urea nitrogen [Mass/Vol] 20 mg/dL High 4-19 [facility] Comment on above: Performed By: #### L 500.4100, [id number] #### [facility] [address] [place], [address] Lipid Profileon 07-17-2024 CHOL:HDL 2.56 Normal [facility] Comment on above: Performed By: #### L 500.4100, [id number] #### [facility] [address] [place], [address] Cholesterol [Mass/Vol] 116 mg/dL Normal <=[address] [facility] Comment on above: Result Comment: Chol esterol level, Desirable <200 mg/dL Borderline high cholesterol 200-239 mg/dL High cholesterol >=240 mg/dL Recommendations of the NCEP Adult Treatment Panel for the following risk-cutoff thresholds for the [place] population. Performed By: #### L 500.4100, L500.4050 #### [facility] [address] [place], [address] Cholesterol in HDL [Mass/Vol] 45 mg/dL Normal [facility] Comment on above: Result Comment: Kathie onal Cholesterol Education Program (NCEP) guidelines: <40 mg/dL: Low HDL-cholesterol (major risk factor for CHD) >= 60 mg/dL: High HDL-cholesterol (negative risk factor for CHD) HDL-cholesterol is affected by a number of factors, e.g. smoking, exercise, hormones, sex and age. Performed By: #### L 500.4100, [id number] #### [facility] [address] [place], [address] Cholesterol in LDL [Mass/Vol] 55 mg/dL Normal [facility] Comment on above: Result Comment: Bord xcfflq=786-511 mg/dL Higher Gxra=923 mg/dL or greater Performed By: #### L 500.4100, [id number] #### [facility] [address] [place], [address] Cholesterol in VLDL [Mass/Vol] 16 mg/dL Normal 5-40 [facility] Comment on above: Performed By: #### L 500.4100, [id number] #### [facility] [address] [place], [address] Triglyceride [Mass/Vol] 78 mg/dL Normal [facility] Comment on above: Result Comment: The drugs N-Acetylcysteine and Metamizole may falsely depress this assay. Normal range: <150 mg/dL Borderline High: 150-199 mg/dL High: 200-499 mg/dL Very High: >500 mg/dL Performed By: #### L 500.4100, L500.4050 #### [facility] [address] [place], [address] Office Visit Reporton 2024 Office Visit Report [facility] [address] [place] [address] OFFICE VISIT Date of Service: 07/17/24 MR#: [id number] Acct: [id number] Patient: JANI PEREZ Rep #: [id number] : 1960 Provider: Dr. Xenia Murillo MD Age/Sex: 64/M Location: [facility] Status: Signed Intake Vital Signs 07/10/24 08:02 07/17/24 13:13 Height 5 ft 10 in Weight: 253 lb BMI 36.3 BP 144/88 H 117/68 Blood Pressure Location Lt brachial Rt brachial Position Sitting Sitting Respiration 20 H 18 Pulse 84 54 L Pulse Source NIBP NIBP Intake Visit Reasons: Blood pressure check Allergies No Known Allergies Allergy (Verified 07/10/24 09:33) Have you fallen in the past year?: No Nursing Note Patient arrived with friend for f/u BP check from . BP: 117/68 HR: 54 Pt denies any adverse effects from medication changes. Pt did mention recent increased agitation, but unsure if related to cardiac medications or other therapies. Denies any acute s/s at this time. Accompanied by friend. All questions related to diagnostic scheduling answered, patient to call the scheduling department. No further questions, comments, or concerns at the conclusion of the visit. Clinical Quality Measures Falls Risk Screening/Assistive Devices Have you fallen in the past year?: No 07/30/24 1402 Date Xenia Murillo MD Cosigner Signature: Date (if applicable) CC: Normal [facility] 12 Lead EKG performed by [facility] on 07-10-2024 12 Lead EKG performed by [facility] [address] [place] [address] 12 Lead EKG performed by [facility] 07/10/24 0801 MR#: [id number] Acct: [id number] Name: JANI PEREZ Rep #: [id number] : 1960 63 From: Xenia Murillo MD Attending Dr: Dr. Xenia Murillo MD Status: DEP AMB Ordering Dr: Xenia Murillo MD Date: 07/10/24 Location: [facility] Sex: M C Admitted: BMS/12 Lead EKG performed by [facility] ECG Report Interpretation --Atrial fibrillation ABNORMAL RHYTHMElectronically signed on 08/22/2024 at 13:[address] Xenia Murillo [employer] Version 8610 08/22/24 1337 Date Xenia Murillo MD CC: MEHUL Zamarripa Date Dictated: 07/10/24800 Date Transcribed: 07/10/24800 Shoes Hand Sewer: MELINA Signed Normal [facility] Cardiology Visit Reporton Cardiology Visit Report [facility] [address] [facility] [place] [address] OFFICE VISIT Date of Service: 07/10/24 MR#: [id number] Acct: [id number] Name: JANI PEREZ Rep #: [id number] : 1960 Provider: Dr. Xenia Murillo MD Age/Sex: 63/M Location: [facility] Status: Signed HPI HPI History of Present Illness Details: This gentleman is here to establish care with us. He has past medical history significant for atrial fibrillation, hypertension, dyslipidemia, nicotine dependence and sleep apnea. Patient denies any palpitations. He complains of some chest pain when he coughs. No exertional chest discomfort. He has some shortness of breath with moderate to strenuous exertion. Denies orthopnea or PND. Denies any ankle edema. No history of CVA or TIA. Tolerating his rivaroxaban well and denies any bleeding problems. Intake Vital Signs 05/04/24 16:57 07/10/24 08:02 Height 5 ft 7.5 in 5 ft 10 in Weight: 233 lb 253 lb BMI 35.9 36.3 BP 144/88 H Blood Pressure Location Lt brachial Position Sitting Respiration 20 H Pulse 84 Pulse Source NIBP Intake Visit Reasons: EST/SP/P [facility] 03/20 ([facility] ER) Saddle Stitch Operator Required: No Accompanied by: Friend Is patient in pain?: Yes Allergies No Known Allergies Allergy (Verified 07/10/24 09:33) Medications ???Medication ???Instructions ???Recorded ???Confirmed ???Type atorvastatin 20 mg tablet 20 mg PO QHS 12/14/18 07/10/24 His tory cetirizine 10 mg capsule 10 mg PO DAILY 12/14/18 07/10/24 H istory hydrochlorothiazide 25 mg tablet 25 mg PO DAILY 12/14/18 07/10/24 H istory rivaroxaban 20 mg tablet (Xarelto) 20 mg PO QDAY 09/06/23 07/10/24 History allopurinol 100 mg tablet 100 mg PO QDAY 05/04/24 07/10/24 H istory indomethacin 50 mg capsule 50 mg PO BID PRN 05/04/24 07/10/24 History metoprolol succinate 50 mg 50 mg PO QDAY 05/04/24 07/10/24 Hi story tablet,extended release 24 hr amlodipine 10 mg tablet 10 mg PO QDAY 07/10/24 07/10/24 Hi story baclofen 5 mg tablet 5 mg PO TID PRN 07/10/24 07/10/24 History pregabalin 100 mg capsule 100 mg PO TID PRN 07/10/24 5 History Ejection fraction %: 55 Have you fallen in the past year?: No [facility] Medical History Actinic keratosis of left cheek Arthritis, multiple joint involvement Basal cell carcinoma of anterior chest BMI 37.0-37.9, adult Breathing-related sleep disorder Chronic a-fib Chronic back pain greater than 3 months duration Chronic neck pain with normal neurological examination Dyslipidemia Hypertension, essential Left rotator cuff tear Left shoulder pain Major depressive disorder, severe Obesity (BMI 30-39.9) Other male erectile dysfunction Peripheral polyneuropathy Seasonal allergies Smokeless tobacco use Smoker Squamous cell cancer of skin of [place] Subscapularis tendinitis Tear of left supraspinatus tendon Surgical History H/O local excision of skin lesion H/O shoulder surgery History of tonsillectomy Family History Father Hypertension Other Cancer Social History household members: significant other Smoking Status: Current every day smoker tobacco type: cigarettes Smokeless tobacco user: chewing tobacco alcohol intake: current alcohol intake frequency: holidays/special occasions only substance use type: does not use caffeine: Yes Type: carbonated beverages and coffee Number of servings: 2 ROS Const Const: Negative for fatigue, weakness, headache(s) or weight gain ENT ENT: Negative for headache(s), dizziness, Nosebleed/epistaxis or balance problems Cardio Chest Pain: Yes Frequency: more than once a day and other Character: sharp Onset: other (coughing) Location: left chest Duration: brief Exacerbation: other (coughing) Relieving: rest Recurrence: other (coughing) Palpitations: Yes (chronic Afib; no felt symptoms) Edema: Bilateral (BLE; seldom; mild) Muscle aches with walking: None Resp Respiratory: Positive for SOB with activity and SOB at rest; Negative for SOB orthopnea SOB lying down GI GI: Negative nausea, vomiting or heartburn Musc Musc: Positive for muscle aches/ myalgia (rotator cuff); Negative for muscle weakness, joint pain or balance problems Neuro Neuro: Positive for lightheadedness (seldom); Negative for dizziness, near syncope, syncope, headache(s) or weakness Endo Endo: Negative for fatigue Cardiology Exam Const Appearance: comfortable and no acute distress Nutritional Appearance: obese Neck Neck: no JVD Carotids: Negative bruit Chest Auscultation: Bilateral: Clear to Auscul (more content not included)... Normal [facility] Cerv Spine 2 or 3 Viewson Cerv Spine 2 or 3 Views [facility] Imaging Services [address] [place] [address] Cerv Spine 2 or 3 Views MR#: [id number] Acct: [id number] Name: JANI PEREZ Rep #: [id number] : 1960 M 63 From: Cruz Braun MD PCP: MEHUL Hawley Status: REG CLI Study: Cerv Spine 2 or 3 Views Date of Exam: 04/20/24 Exam# [id number] Ordering Dr: Serafin William MD [id number] EXAM: XR CERVICAL SPINE, 2 OR 3 VIEWS CLINICAL INDICATION: Cervical radiculopathy TECHNIQUE: Frontal and lateral views of the cervical spine. COMPARISON: No relevant prior studies available. FINDINGS: VERTEBRAE: Loss of the normal cervical lordosis which may be due to muscle spasm or head positioning. No acute fracture or subluxation. Disc space narrowing and vertebral body hypertrophy noted at C5-6 and C6-7. Multilevel facet arthropathy. DISC SPACES: See above. SOFT TISSUES: Soft tissue calcification noted on the lateral view may be within the submandibular space. Salivary duct stone to BE excluded. No prevertebral soft tissue widening. LUNG APICES: Clear. OTHER FINDINGS: Nuchal calcification noted related to remote trauma. RAD/Cerv Spine 2 or 3 Views IMPRESSION: 1. No acute fracture or subluxation. 2. Loss of the normal cervical lordosis which may be due to muscle spasm or head positioning. 3. Disc space narrowing and vertebral body hypertrophy noted at C5-6 and C6-7. Multilevel facet arthropathy. 4. Soft tissue calcification noted on the lateral view may be within the submandibular space. Salivary duct stone to BE excluded. Electronically Signed: Cruz Braun MD at 11:07 EST Reading Location ID and State: [address] [place] [address] Tel , Service support , CC: MEHUL Zamarripa; Dr. Serafin William MD Shoes Hand Sewer: Signed Normal [facility] Orthopedic Visit Reporton Orthopedic Visit Report [facility] [address] [place] [address] OFFICE VISIT Date of Service: 03/20/24 MR#: [id number] Acct: [id number] Name: JANI PEREZ Rep #: [id number] : 1960 Provider: Dr. Fredrick carolina MD Age/Sex: 63/M Location: [facility] Status: Signed Intake Vital Signs 09/06/23 14:32 03/17/24 12:41 Height 5 ft 10 in 5 ft 10 in Intake Visit Reasons: LEFT SHOULDER Accompanied by: Significant Other Is patient in pain?: Yes Pain scale (1-10): 10 Allergies No Known Allergies Allergy (Verified 03/20/24 11:14) Medications ???Medication ???Instructions ???Recorded ???Confirmed ???Type amlodipine 10 mg tablet 10 mg PO DAILY 12/14/18 03/20/24 History aspirin 81 mg tablet,delayed 81 mg PO DAILY 12/14/18 03/20/24 History release atorvastatin 20 mg tablet 20 mg PO QHS 12/14/18 03/20/24 History cetirizine 10 mg capsule 10 mg PO DAILY 12/14/18 03/20/24 History hydrochlorothiazide 25 mg tablet 25 mg PO DAILY 12/14/18 03/20/24 History lisinopril 5 mg tablet 5 mg PO DAILY 12/14/18 03/20/24 History metoprolol tartrate 50 mg tablet 50 mg PO DAILY 12/14/18 03/20/24 History gabapentin 600 mg tablet 600 mg PO DAILY 09/06/23 03/20/24 History rivaroxaban 20 mg tablet (Xarelto) 20 mg PO QDAY 09/06/23 03/20/24 History tizanidine 4 mg capsule 4 mg PO QHS PRN 09/06/23 03/20/24 History oxycodone-acetaminophen 5 mg-325 1 tab PO Q8H PRN pain 3 days #10 03/17/24 03/20/24 Rx mg tablet (Percocet) tabs PFSH Medical History Left rotator cuff tear Left shoulder pain Surgical History H/O shoulder surgery Family History Other Cancer Hypertension Social History Smoking Status: Current every day smoker tobacco type: cigarettes alcohol intake: current alcohol intake frequency: holidays/special occasions only HPI LEFT SHOULDER Details: This documentation accurately reflects the service provided and the decisions made by me, Dr. Fredrick Santos MD 03/20/24 0833. Part of today???s visit was documented by [ ], acting as scribe. JANI PEREZ is a 63 year old M here today for FU L shoulder pain, RC tear. Patient was recently in the emergency department for chest and shoulder pain. There is a workup he was recommended to follow-up with cardiology. The patient has not yet seen them. The patient is on Xarelto for atrial fibrillation. Had a cortisone injection about 6 weeks ago. The pain has returned in the shoulder. Supplemental Info MRI/Upper Ext Joint Only(Routine) IMPRESSION: Suspected 6 x 5 mm full-thickness tear of the anterior distal supraspinatus tendon insertion. Subscapularis tendinosis. Hypertrophic acromioclavicular arthrosis, with inferior osteophyte formation, with mild effacement of the supraspinatus myotendinous junction. Small amount of subacromial-subdeltoid bursal fluid. Tear of the posterior glenoid labrum. Electronically Signed: Scott Saucedo MD at 10:54 EDT , Coding Level of Care Code Off vis,est,level 3 Diagnoses Left rotator cuff tear M75.102 Assessment and Plan Assessment and Plan (1) Left rotator cuff tear: Status: Acute Plan: 63-year-old man with left shoulder pain and a small supraspinatus tendon tear. Pros cons risk benefits of each of these methods of treatments discussed including surgery left shoulder arthrosco pic subacromial decompression debridement and rotator cuff repair. Patient is wanting a sling for today prescribed that for short period of rest. The patient needs to get into see the wet wheeler that is certainly the priority here before proceeding with any sort of elective surgery we did discuss the risks of surgery. The patient will see wet wheeler first and then come back to the office if he is cleared then I will have to get a cardiac clearance to see how long to hold his blood thinners. The patient is also a smoker that typically increase the risk of complication including infection and tendon nonhealing. I also sent a referral to pain specialty as the patient is now taking oral narcotics for pain in the chest and shoulder and is asking for even more pain medications today. I will see the patient back after cardiology visit. Ortho Exam General General: Yes no acute distress Neurologic: Yes alert and Yes oriented x3 Psychologic: Yes reasonable and appropriate Left Shoulder SHOULDER: left hand warm, cap refill 3 sec, strong radial pulse. 03/20/24 1140 Date (more content not included)... Normal [facility] 12 Lead EKGon 03-17-2024 12 Lead EKG [facility] Cardiovascular Services [address] [place] [address] 12 Lead EKG 03/17/24 1321 MR#: [id number] Acct: [id number] Name: JANI PEREZ Rep #: [id number] : 1960 63 From: Johnnie Acevedo MD Attending Dr: Status: DEP ER Ordering Dr: Willian Vivar ADMINISTRATIVE RECEPTIONIST-C Date: 03/17/24 Location: ED Sex: M C Admitted: Test Reason : GENERAL Blood Pressure : */* mmHG Vent. Rate : 88 BPM Atrial Rate : * BPM P-R Int : * ms QRS Dur : 86 ms QT Int : 348 ms P-R-T Axes : * 6 70 degrees QTcB Int : 421 ms Atrial fibrillation Nonspecific ST and T wave abnormality Abnormal ECG Confirmed by JOHNNIE ACEVEDO MD ([id number]), editor department TOD DURAN ([id number]) on 03/19/2024 6:33:25 AM Referred By: Confirmed By: JOHNNIE ACEVEDO MD 03/19/24 0633 Date Johnnie Acevedo MD CC: ADMINISTRATIVE RECEPTIONIST-C Willian Vivar; Dr. Erick Daily MD; Dr. Julio C Reyna DO Signed Normal [facility] Basic Metabolic Profile (BMP )on 03-17-2024 BUN/CRE 25.7 RATIO High 10-20 [facility] Comment on above: Order Comment: 'TROP ' Serial specimen #1, #2 or #3: 1 Performed By: #### L 501.4020, L500.2500, L100.0100 #### [facility] [address] [place], [address] CA,Total 9.3 mg/dL Normal 8.5-10.1 [facility] Comment on above: Order Comment: 'TROP ' Serial specimen #1, #2 or #3: 1 Performed By: #### L 501.4020, L500.2500, L100.0100 #### [facility] [address] [place], [address] Chloride [Moles/Vol] 102 mmol/L Normal 98-107 [facility] Comment on above: Order Comment: 'TROP ' Serial specimen #1, #2 or #3: 1 Performed By: #### L 501.4020, L500.2500, L100.0100 #### [facility] [address] [place], [address] CO2 [Moles/Vol] 32.0 mmol/L Normal 21.0-32.0 [facility] Comment on above: Order Comment: 'TROP ' Serial specimen #1, #2 or #3: 1 Performed By: #### L 501.4020, L500.2500, L100.0100 #### [facility] [address] [place], [address] Creatinine [Mass/Vol] 1.05 mg/dL Normal 0.70-1.30 [facility] Comment on above: Order Comment: 'TROP ' Serial specimen #1, #2 or #3: 1 Result Comment: The validity of the calculated GFR GFRAA in patients over 70 years has not been determined. Clinical correlation is essential. Performed By: #### L 501.4020, L500.2500, L100.0100 #### [facility] [address] [place], [address] ECRCL 88.54 ml/min Normal [facility] Comment on above: Order Comment: 'TROP ' Serial specimen #1, #2 or #3: 1 Performed By: #### L 501.4020, L500.2500, L100.0100 #### [facility] [address] [place], [address] EST GFR - AA 91 mL/min Normal >60 [facility] Comment on above: Order Comment: 'TROP ' Serial specimen #1, #2 or #3: 1 Result Comment: Afri can Cymro GFR Calc Performed By: #### L 501.4020, L500.2500, L100.0100 #### [facility] [address] [place], [address] GAP 5 Normal 5-15 [facility] Comment on above: Order Comment: 'TROP ' Serial specimen #1, #2 or #3: 1 Performed By: #### L 501.4020, L500.2500, L100.0100 #### [facility] [address] [place], [address] GFR/1.73 sq M.predicted among non-blacks MDRD (S/P/Bld) [Vol rate/Area] 75 mL/min/{1.73_m2} Normal >60 [facility] Comment on above: Order Comment: 'TROP ' Serial specimen #1, #2 or #3: 1 Result Comment: Non- GFR Calc Performed By: #### L 501.4020, L500.2500, L100.0100 #### [facility] [address] [place], [address] Glucose [Mass/Vol] 129 mg/dL High 74-106 [facility] Comment on above: Order Comment: 'TROP ' Serial specimen #1, #2 or #3: 1 Result Comment: Fast ing Glucose result greater than or equal to 126 mg/dL suggests DIABETES MELLITUS per A.D.A. criteria. Performed By: #### L 501.4020, L500.2500, L100.0100 #### [facility] [address] [place], [address] Potassium [Moles/Vol] 3.0 mmol/L Low 3.5-5.1 [facility] Comment on above: Order Comment: 'TROP ' Serial specimen #1, #2 or #3: 1 Performed By: #### L 501.4020, L500.2500, L100.0100 #### [facility] [address] [place], [address] Sodium [Moles/Vol] 138 mmol/L Normal 136-145 [facility] Comment on above: Order Comment: 'TROP ' Serial specimen #1, #2 or #3: 1 Performed By: #### L 501.4020, L500.2500, L100.0100 #### [facility] [address] [place], [address] Urea nitrogen [Mass/Vol] 27 mg/dL High 7-18 [facility] Comment on above: Order Comment: 'TROP ' Serial specimen #1, #2 or #3: 1 Performed By: #### L 501.4020, L500.2500, L100.0100 #### [facility] [address] [place], [address] CBC W/Diff, Automatedon 12-2 Absolute Lymph 2.04 X10 3/uL Normal 0.83-4.51 [facility] Comment on above: Performed By: #### L 501.4020, L500.2500, L100.0100 #### [facility] [address] [place], [address] Absolute Neut 10.7 X10 3/uL High 2.0-7.7 [facility] Comment on above: Performed By: #### L 501.4020, L500.2500, L100.0100 #### [facility] [address] [place], [address] Basophils/100 WBC (Bld) 0.8 % Normal 0-1 [facility] Comment on above: Performed By: #### L 501.4020, L500.2500, L100.0100 #### [facility] [address] [place], [address] Eosinophils/100 WBC (Bld) 0.6 % Normal 0-5 [facility] Comment on above: Performed By: #### L 501.4020, L500.2500, L100.0100 #### [facility] [address] [place], [address] Erythrocyte distribution width (RBC) [Ratio] 14.4 % Normal 11.6-14.6 [facility] Comment on above: Performed By: #### L 501.4020, L500.2500, L100.0100 #### [facility] [address] [place], [address] Hematocrit (Bld) [Volume fraction] 48.2 % Normal 40-54 [facility] Comment on above: Performed By: #### L 501.4020, L500.2500, L100.0100 #### [facility] [address] [place], [address] Hemoglobin (Bld) [Mass/Vol] 15.9 g/dL Normal 13.0-16.5 [facility] Comment on above: Performed By: #### L 501.4020, L500.2500, L100.0100 #### [facility] [address] [place], [address] IG% 2.500 High 0.0-0.9 [facility] Comment on above: Result Comment: IG% - Immature Granulocytes (promyelocytes, myelocytes and metamyelocytes) > 1% indicates that a LEFT SHIFT is Present. Performed By: #### L 501.4020, L500.2500, L100.0100 #### [facility] [address] [place], [address] Lymphocytes/100 WBC (Bld) 14.1 % Low 19-41 [facility] Comment on above: Performed By: #### L 501.4020, L500.2500, L100.0100 #### [facility] [address] [place], [address] MCH (RBC) [Entitic mass] 29.1 pg Normal 27.0-32.0 [facility] Comment on above: Performed By: #### L 501.4020, L500.2500, L100.0100 #### [facility] [address] [place], [address] MCHC (RBC) [Mass/Vol] 33.0 g/dL Normal 32-36 [facility] Comment on above: Performed By: #### L 501.4020, L500.2500, L100.0100 #### [facility] [address] [place], [address] MCV (RBC) [Entitic vol] 88.1 fL Normal 80-94 [facility] Comment on above: Performed By: #### L 501.4020, L500.2500, L100.0100 #### [facility] [address] [place], [address] Monocytes/100 WBC (Bld) 8.3 % Normal 0-10 [facility] Comment on above: Performed By: #### L 501.4020, L500.2500, L100.0100 #### [facility] [address] [place], [address] Neutrophils/100 WBC (Bld) 73.7 % High 47-70 [facility] Comment on above: Performed By: #### L 501.4020, L500.2500, L100.0100 #### [facility] [address] [place], [address] Nucleated RBC (Bld) [#/Vol] 0 10*3/uL Normal 0-5 [facility] Comment on above: Performed By: #### L 501.4020, L500.2500, L100.0100 #### [facility] [address] [place], [address] Platelet mean volume (Bld) [Entitic vol] 11.3 fL Normal 6.2-12.0 [facility] Comment on above: Performed By: #### L 501.4020, L500.2500, L100.0100 #### [facility] [address] [place], [address] Platelets (Bld) [#/Vol] 167 10*3/uL Normal 150-450 [facility] Comment on above: Performed By: #### L 501.4020, L500.2500, L100.0100 #### [facility] [address] [place], [address] RBC (Bld) [#/Vol] 5.47 10*6/uL Normal 4.6-6.2 [facility] Comment on above: Performed By: #### L 501.4020, L500.2500, L100.0100 #### [facility] [address] [place], [address] RDW SD 45.9 fl High 35.1-43.9 [facility] Comment on above: Performed By: #### L 501.4020, L500.2500, L100.0100 #### [facility] [address] [place], [address] WBC (Bld) [#/Vol] 14.5 10*3/uL High 4.4-11.0 [facility] Comment on above: Performed By: #### L 501.4020, L500.2500, L100.0100 #### [facility] [address] [place], [address] Chest 1 View (Portable)on Chest 1 View (Portable) [facility] Imaging Services [address] [place] [address] Chest 1 View (Portable) MR#: [id number] Acct: [id number] Name: JANI PEREZ Rep #: [id number] : 1960 M 63 From: Cruz Braun MD PCP: Dr. Erick Daily MD Status: [facility] ER Study: Chest 1 View (Portable) Date of Exam: 03/17/24 Exam# [id number] Ordering Dr: Willian Vivar ADMINISTRATIVE RECEPTIONISTCandy [id number] EXAM: XR CHEST, 1 VIEW CLINICAL INDICATION: dyspnea TECHNIQUE: Frontal view of the chest. COMPARISON: XR Chest dated 12/14/2018 FINDINGS: LUNGS AND PLEURAL SPACES: No pulmonary consolidation. No pleural effusion or pneumothorax. HEART: Stable borderline cardiomegaly. MEDIASTINUM: No mediastinal or hilar mass. BONES/JOINTS: No acute abnormality. RAD/Chest 1 View (Portable) IMPRESSION: No acute cardiopulmonary abnormality. Electronically Signed: Cruz Braun MD at 15:28 EST , CC: MEHUL Vivar; Dr. Erick Daily MD Shoes Hand Sewer: Signed Normal [facility] Emergency Department Summary on 03-17-2024 Emergency Department Summary [facility] Medical Records Department [address] [place] [address] Emergency Department Summary 03/17/24 MR#: [id number] Acct: [id number] Name: JANI PEREZ Rep #: [id number] : 1960 63 From: Julio C Reyna DO PCP: Dr. Erick Daily MD Status:[facility] ER Location: ED Patient was seen and examined with nurse practitioner Willian All components of the history and physical confirmed and agreed. History of present illness and physical exam: Patient is a 63-year-old male with past medical history of atrial fibrillation on Xarelto who presents to the emergency department the chief complaint of worsening left shoulder pain. He states that this been going on for a significant mount time and noted that over the last several weeks he has also noted that he is having some left-sided chest discomfort and some shortness of breath. He states he has been compliant with his anticoagulation. He states that he had a cortisone shot in the past in his shoulder and this helped his symptoms. He states that he is scheduled to see his orthopedic doctor in 2 days. Patient states that he had a stress test approximately at least 4 years ago. Review of systems: Agree with above Physical exam: Agree with above MDM patient is a 63-year-old male who presented to the [facility] with a chief complaint of left shoulder pain. Patient will have a workup performed here on the differential diagnose includes but not limited to rotator cuff tear, cervical radiculopathy, ACS, stable angina once the workup is obtained reviewed he will be reevaluated. Patient's CBC was reviewed and showed a white blood count of 14,000, hemoglobin was stable at 15.9, platelet count normal at 167. Patient sodium normal at 138, potassium was low at 3 he was given 40 mill equivalents of potassium supplementation here, creatinine normal at 1.05. Patient's troponin was obtained and was normal at 5 with a delta troponin obtained normal at 5. Patient's EKG reviewed and independently interpreted by myself. Patient's case was discussed with cardiology Dr. Acevedo by nurse practitioner Willian who states that the patient can follow-up with his orthopedic doctor in outpatient setting and have a outpatient s tress test. Patient was encouraged to return with worsening symptoms or other concerns. He is agreeable to plan. Patient was given short prescription of pain medication for home. All question concerns answered bedside significant other bedside is agreeable this plan. Final impression: Left shoulder pain Chest pain Disposition: Patient will be discharged home in stable condition Supervising attending attestation: Julio C ADORNO History of Present Illness Chief Complaint: Upper Extremity Injury Narrative Narrative: Patient is a 63-year-old male with history of atrial fibrillation, on anticoagulation medicine who presents to the [facility] for complaints of worsening left shoulder pain, as well as some pain going to his chest. He has noticed over the last several weeks, is been having left-sided chest pain as well as shortness of breath. Patient thinks is coming from his shoulder however he is unsure. Patient denies any fever chills nausea or vomiting. He does see his orthopedic in 2 days. PFSH PFS Medical History Left rotator cuff tear Left shoulder pain Home Medications ???Medication ???Instructions ???Recorded ???Last Taken ???Type amlodipine 10 mg tablet 10 mg PO DAILY 12/14/18 Unknown History aspirin 81 mg tablet,delayed 81 mg PO DAILY 12/14/18 Unknown History release atorvastatin 20 mg tablet 20 mg PO QHS 12/14/18 Unknown History cetirizine 10 mg capsule 10 mg PO DAILY 12/14/18 Unknown History hydrochlorothiazide 25 mg tablet 25 mg PO DAILY 12/14/18 Unknown History lisinopril 5 mg tablet 5 mg PO DAILY 12/14/18 Unknown History metoprolol tartrate 50 mg tablet 50 mg PO DAILY 12/14/18 Unknown History gabapentin 600 mg tablet 600 mg PO DAILY 09/06/23 Unknown History rivaroxaban 20 mg tablet (Xarelto) 20 mg PO QDAY 09/06/23 Unknown History tizanidine 4 mg capsule 4 mg PO QHS PRN 09/06/23 Unknown History oxycodone-acetaminophen 5 mg-325 1 tab PO Q8H PRN pain 3 days #10 03/17/24 Unknown Rx mg tablet (Percocet) tabs Allergy/AdvReac Type Severity Reaction Status Date / Time No Known Allergies Allergy Verified 03/17/24 12:46 Family History Other Cancer Hypertension Surgical History H/O shoulder surgery Social History Smoking Status: Current every day smoker tobacco type: cigarettes alcohol intake: current alcohol intake frequency: holidays/special occasions only ROS (more content not included)... Normal [facility] L501.4020on 03-17-2024 TROPONIN-I HS 5 pg/mL Normal 3.0-78.0 [facility] Comment on above: Order Comment: 'TROP ' Serial specimen #1, #2 or #3: 2 Result Comment: Plea se Note: New Test Units and Gender Specific Reference Ranges. For more information see Policy Stat Procedure [place] High Sensitivity Troponin (TNIH) and attachments. Performed By: #### L 501.4020 #### [facility] [address] [place], [address] TROPONIN-I HS 5 pg/mL Normal 3.0-78.0 [facility] Comment on above: Order Comment: 'TROP ' Serial specimen #1, #2 or #3: 1 Result Comment: Plea se Note: New Test Units and Gender Specific Reference Ranges. For more information see Policy Stat Procedure [place] High Sensitivity Troponin (TNIH) and attachments. Performed By: #### L 501.4020, L500.2500, L100.0100 #### [facility] [address] [place], [place], [address] Orthopedic Visit Reporton Orthopedic Visit Report [facility] [address] [place] [address] [address] [place] [address] OFFICE VISIT Date of Service: 03/05/24 MR#: [id number] Acct: [id number] Name: JANI PEREZ Rep #: [id number] : 1960 Provider: Dr. Fredrick carolina MD Age/Sex: 63/M Location: [facility] Status: Signed Intake Vital Signs 09/06/23 14:32 Height 5 ft 10 in Weight: 244 lb BMI 34.9 Intake Visit Reasons: LEFT SHOULDER Accompanied by: Significant Other Is patient in pain?: Yes Allergies No Known Allergies Allergy (Verified 03/05/24 12:59) Medications ???Medication ???Instructions ???Recorded ???Confirmed ???Type amlodipine 10 mg tablet 10 mg PO DAILY 12/14/18 03/05/24 History aspirin 81 mg tablet,delayed 81 mg PO DAILY 12/14/18 03/05/24 History release atorvastatin 20 mg tablet 20 mg PO QHS 12/14/18 03/05/24 History cetirizine 10 mg capsule 10 mg PO DAILY 12/14/18 03/05/24 History hydrochlorothiazide 25 mg tablet 25 mg PO DAILY 12/14/18 03/05/24 History lisinopril 5 mg tablet 5 mg PO DAILY 12/14/18 03/05/24 History metoprolol tartrate 50 mg tablet 50 mg PO DAILY 12/14/18 03/05/24 History gabapentin 600 mg tablet 600 mg PO DAILY 09/06/23 03/05/24 History rivaroxaban 20 mg tablet (Xarelto) 20 mg PO QDAY 09/06/23 03/05/24 History tizanidine 4 mg capsule 4 mg PO QHS PRN 09/06/23 03/05/24 History prednisone 5 mg tablets in a dose See Rx Instructions PO PER PKG DIR 03/05/24 03/05/24 Rx pack shoulder pain 10 days #48 tabs PFSH Medical History Left rotator cuff tear Left shoulder pain Surgical History H/O shoulder surgery Family History Other Cancer Hypertension Social History Smoking Status: Current every day smoker alcohol intake: current alcohol intake frequency: holidays/special occasions only HPI LEFT SHOULDER Details: This documentation accurately reflects the service provided and the decisions made by me, Dr. Fredrick Santos MD 03/05/24 3294. Part of today???s visit was documented by [ ], acting as scribe. JANI PEREZ is a 63 year old M here today for follow-up left shoulder pain small rotator cuff tear. Unfortunately last injection failed to improve in the same way that the first injection helped. 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 Ortho Exam General General: Yes no acute distress Neurologic: Yes alert and Yes oriented x3 Psychologic: Yes reasonable and appropriate Left Shoulder Skin/Wound: Yes CDI, No ecchymosis, No erythema and No swelling Testing: Yes Hawkin's, Yes Neer's, No Speed's, Yes AROM-Forward Elevation 0-180, Yes AROM-External Rotation at side 0-60 and Yes empty can SHOULDER: nvi, hand warm well perfused. Coding Level of Care Code Off vis,est,level 3 Diagnoses Left rotator cuff tear M75.102 Assessment and Plan Assessment and Plan (1) Left rotator cuff tear: Status: Acute Plan: 63-year-old man rotator cuff tear. I did let the patient know that a 10 years follow-up typically these do better with repair although this is not a guarantee. Time off would be about 3 months before going back to any sort of significant heavy lifting. The patient does want to start with some oral medications as well at this point and consider further surgery discussed the pros and cons risks and benefits of surgery versus nonoperative management. These tears do not heal themselves if anything to stay the same or get bigger over time. He understands wishes to try oral prednisone taper explained the side effects of that the patient understands no further questions or concerns. Medications: New prednisone PO PER PKG DIR 48 tabs 0RF shoulder pain 10 days M75.102 - Unspecified rotator cuff tear or rupture of left shoulder, not specified as traumatic 03/05/24 1317 Date Fredrick Santos MD [facility] Signature: Date (if applicable) CC: Normal [facility] Orthopedic Visit Reporton Orthopedic Visit Report [facility] [address] [place] [address] OFFICE VISIT Date of Service: 01/19/24 MR#: [id number] Acct: [id number] Name: JANI PEREZ Rep #: [id number] : 1960 Provider: Dr. Fredrick carolina MD Age/Sex: 63/M Location: [facility] Status: Signed with Addenda ADDENDUM by Klaudia Moy on 01/19/24 at 1352 Office Procedure Documentation entered by Klaudia Moy 01/19/24 13:52: Ortho Injections Injections Yes Subacromial Injection Left Is this a patient provided medication?: No Details: Obtained consent for injection. Under sterile conditions, injected the patients left shoulder with 2cc Kenalog 4cc Bupivacaine. The patient tolerated the injection well without any noted complication. Patient should call our office if redness develops, pain worsens or if they have any concerns. Office Meds Kenalog 40 mg/mL suspension for injection Performing Provider: Fredrick Santos MD Performing Location: [facility] Administered by: Fredrick Santos MD on 01/19/24 13:51 Dose Route Admin Location Dispensed Lot Number Expiration Date [facility] Man ufacturer 80 mg intra-articular left shoulder 2 mL [id number] 06/26/25 1328-6967-66 [facility] Date cc: * Signed Intake Vital Signs 09/06/23 14:32 Height 5 ft 10 in Weight: 244 lb BMI 34.9 Intake Visit Reasons: LEFT SHOULDER Accompanied by: Is patient in pain?: Yes Allergies No Known Allergies Allergy (Verified 01/19/24 13:39) Medications ???Medication ???Instructions ???Recorded ???Confirmed ???Type amlodipine 10 mg tablet 10 mg PO DAILY 12/14/18 01/19/24 History aspirin 81 mg tablet,delayed 81 mg PO DAILY 12/14/18 01/19/24 History release atorvastatin 20 mg tablet 20 mg PO QHS 12/14/18 01/19/24 History cetirizine 10 mg capsule 10 mg PO DAILY 12/14/18 01/19/24 History hydrochlorothiazide 25 mg tablet 25 mg PO DAILY 12/14/18 01/19/24 History lisinopril 5 mg tablet 5 mg PO DAILY 12/14/18 01/19/24 History metoprolol tartrate 50 mg tablet 50 mg PO DAILY 12/14/18 01/19/24 History gabapentin 600 mg tablet 600 mg PO DAILY 09/06/23 01/19/24 History rivaroxaban 20 mg tablet (Xarelto) 20 mg PO QDAY 09/06/23 01/19/24 History tizanidine 4 mg capsule 4 mg PO QHS PRN 09/06/23 01/19/24 History PFSH Medical History Left rotator cuff tear Left shoulder pain Surgical History H/O shoulder surgery Family History Other Cancer Hypertension Social History Smoking Status: Current every day smoker alcohol intake: current alcohol intake frequency: holidays/special occasions only HPI LEFT SHOULDER Details: This documentation accurately reflects the service provided and the decisions made by me, Dr. Fredrick Santos MD 01/19/24 1102. Part of today???s visit was documented by [ ], acting as scribe. JANI PEREZ is a 63 year old M here today for follow-up left shoulder pain 3 months since last cortisone injection. Patient is interested in repeat cortisone injection. The pain just came back quite recently and the last injection was quite effective and the patient was happy with the results. Patient having more pain at night and difficulty sleeping. Coding Level of Care Code Attention Hyun Diagnoses Left rotator cuff tear M75.102 Left shoulder pain M25.512 Comment 13209 and cpt inject major joint Assessment and Plan Assessment and Plan (1) Left rotator cuff tear: Status: Acute Plan: JANI EPREZ is a 63 year old M here today for L shoulder pain... Patient has small rotator cuff tear on the MRI very minimal osteoarthritis on the x-ray. Patient is likely having pain from the rotator cuff tear as well as bursitis tendinitis and impingement syndrome. The patient counseled on diagnosis prognosis different treatment options including but not limited to rest ice anti- inflammatories activity modifications physical therapy cortisone injections as well as arthroscopic repair of the tendon. FU PRN. Pros and cons risks and benefits of left shoulder subacromial steroid injection were discussed. Patient wished to proceed. Risks include but not limited to infection, pain, stiffness, damage to other structures, neurovascular injury, wear further tear of the tendon and other structures such as the skin, bleeding, allergic reaction, acute flare reaction and other risks. Obtained informed consent for injection. Posterior lateral aspect of the shoulder was prepped with chlorhexidine solution allowed to thoroughly dry over 3 minutes. Used (more content not included)... Normal [facility] Orthopedic Visit Reporton Orthopedic Visit Report [facility] [address] [place] [address] [address] [place] [address] OFFICE VISIT Date of Service: 10/18/23 MR#: [id number] Acct: [id number] Name: JANI PEREZ Rep #: [id number] : 1960 Provider: Dr. Fredrick carolina MD Age/Sex: 63/M Location: [facility] Status: Signed Intake Vital Signs 09/06/23 14:32 Height 5 ft 10 in Weight: 244 lb BMI 34.9 Intake Visit Reasons: LEFT SHOULDER Accompanied by: Self Is patient in pain?: No Allergies No Known Allergies Allergy (Verified 10/18/23 12:43) Medications ???Medication ???Instructions ???Recorded ???Confirmed ???Type amlodipine 10 mg tablet 10 mg PO DAILY 12/14/18 10/18/23 History aspirin 81 mg tablet,delayed 81 mg PO DAILY 12/14/18 10/18/23 History release atorvastatin 20 mg tablet 20 mg PO QHS 12/14/18 10/18/23 History cetirizine 10 mg capsule 10 mg PO DAILY 12/14/18 10/18/23 History hydrochlorothiazide 25 mg tablet 25 mg PO DAILY 12/14/18 10/18/23 History lisinopril 5 mg tablet 5 mg PO DAILY 12/14/18 10/18/23 History metoprolol tartrate 50 mg tablet 50 mg PO DAILY 12/14/18 10/18/23 History gabapentin 600 mg tablet 600 mg PO DAILY 09/06/23 10/18/23 History rivaroxaban 20 mg tablet (Xarelto) 20 mg PO QDAY 09/06/23 10/18/23 History tizanidine 4 mg capsule 4 mg PO QHS PRN 09/06/23 10/18/23 History PFSH Medical History Left rotator cuff tear Left shoulder pain Surgical History H/O shoulder surgery Family History Other Cancer Hypertension Social History Smoking Status: Current every day smoker alcohol intake: current alcohol intake frequency: holidays/special occasions only HPI LEFT SHOULDER Details: This documentation accurately reflects the service provided and the decisions made by me, Dr. Fredrick Santos MD 10/18/23 1241. Part of today???s visit was documented by [ ], acting as scribe. JANI PEREZ is a 63 year old M here today for follow-up left shoulder small rotator cuff tear and subacromial cortisone injection 6 weeks ago. The patient is doing well no pain today no daytime symptoms no pain with reaching patient happy with the progress. Ortho Exam General General: Yes no acute distress Neurologic: Yes alert and Yes oriented x3 Psychologic: Yes reasonable and appropriate Left Shoulder Skin/Wound: Yes CDI, No ecchymosis, No erythema and No swelling Testing: No Hawkin's, No Neer's, No Speed's, Yes AROM-Forward Elevation 0-180, Yes AROM-External Rotation at side 0-60, No Sulcus Sign, No empty can, No [place], No cross arm, No lift off, No scapular winging and Yes belly press normal Coding Level of Care Code Off vis,est,level 3 Diagnoses Left rotator cuff tear M75.102 Assessment and Plan Assessment and Plan (1) Left rotator cuff tear: Status: Acute Plan: 63-year-old man 6 weeks following up left shoulder subacromial cortisone injection for small rotator cuff tear the patient is doing well asymptomatic. I did warn him again this can become worse or bigger with time resulting in worse outcomes over 10 years.. The patient is satisfied to continue on nonsurgically see how things go and if the pain comes back or this continues to be a problem we will consider arthroscopic rotator cuff repair. I discussed the risks and benefits of that as well as postoperative recovery. The patient understands no further questions or concerns. 10/18/23 1309 Date Fredrick Santos MD [employer] Signature: Date (if applicable) CC: Normal [facility] Orthopedic Visit Reporton Orthopedic Visit Report [facility] [address] [place] [address] OFFICE VISIT Date of Service: 09/06/23 MR#: [id number] Acct: [id number] Name: JANI PEREZ Rep #: [id number] : 1960 Provider: Dr. Fredrick carolina MD Age/Sex: 63/M [place] [facility] Status: Signed Intake Vital Signs 09/06/23 14:32 Height 5 ft 10 in Weight: 244 lb BMI 34.9 Intake Visit Reasons: LEFT SHOULDER Accompanied by: Girlfriend Is patient in pain?: Yes Pain scale (1-10): 5 Allergies No Known Allergies Allergy (Verified 09/06/23 14:33) Medications ???Medication ???Instructions ???Recorded ???Confirmed ???Type amlodipine 10 mg tablet 10 mg PO DAILY 12/14/18 09/06/23 History aspirin 81 mg tablet,delayed 81 mg PO DAILY 12/14/18 09/06/23 History release atorvastatin 20 mg tablet 20 mg PO QHS 12/14/18 09/06/23 History cetirizine 10 mg capsule 10 mg PO DAILY 12/14/18 09/06/23 History hydrochlorothiazide 25 mg tablet 25 mg PO DAILY 12/14/18 09/06/23 History lisinopril 5 mg tablet 5 mg PO DAILY 12/14/18 09/06/23 History metoprolol tartrate 50 mg tablet 50 mg PO DAILY 12/14/18 09/06/23 History gabapentin 600 mg tablet 600 mg PO DAILY 09/06/23 09/06/23 History rivaroxaban 20 mg tablet (Xarelto) 20 mg PO QDAY 09/06/23 09/06/23 History tizanidine 4 mg capsule 4 mg PO QHS PRN 09/06/23 09/06/23 History PFSH Medical History (Updated 09/06/23 @ 15:03 by Fredrick Santos MD) Left rotator cuff tear Left shoulder pain Surgical History (Updated 09/06/23 @ 14:35 by Denice Kimbrough) H/O shoulder surgery Family History (Updated 09/06/23 @ 14:36 by Denice Kimbrough) Other Cancer Hypertension Social History Smoking Status: Current every day smoker alcohol intake: current alcohol intake frequency: holidays/special occasions only HPI LEFT SHOULDER Details: This documentation accurately reflects the service provided and the decisions made by me, Dr. Fredrick Santos MD 09/06/23 8602. Part of today???s visit was documented by [ ], acting as scribe. JANI PEREZ is a 63 year old M here today for L shoulder pain... 5 months, dog pulled on it, doing yard work, RHD. lateral side, getting better. [place] - skin cancer lesion excision 2014. no tx or medication, no surgery beside the lesion. Ortho Exam General General: Yes no acute distress Neurologic: Yes alert and Yes oriented x3 Psychologic: Yes reasonable and appropriate Left Shoulder Skin/Wound: Yes CDI, No ecchymosis, No erythema and No swelling Testing: Yes Hawkin's, Yes Neer's, Yes Speed's, No TTP Biceps, No TTP AC Joint, Yes AROM-Forward Elevation 0-180, Yes AROM-External Rotation at side 0-60, No Sulcus Sign, Yes empty can, No [place], No cross arm, No lift off, No scapular winging and Yes belly press normal SHOULDER: normal motor and sens to axillary N, MRU and AIN/PIN. Hand warm well perfused normal radial pulse Strength in forward elevation 4+/5. Strength in external rotation 5/5. Office Procedures Ortho Injections Injections Yes Subacromial Injection Left Is this Buy Bill?: No Details: Obtained consent for injection. Under sterile conditions, injected the patients Left Shoulder with 2ml Kenalog and 4ml Bupivacaine . The patient tolerated the injection well without any noted complication. Patient should call our office if redness develops, pain worsens or if they have any concerns. Office Meds Kenalog 40 mg/mL suspension for injection Performing Provider: Fredrick Santos MD Performing Location: [facility] Administered by: Fredrick Santos MD on 09/06/23 15:04 Dose Route Admin Location Dispensed Lot Number Expiration Date JOSEPH Crow ufacturer 80 mg intra-articular left shoulder 2 mL [id number] 06/26/25 6498-7287-62 [facility] Supplemental Info [facility] Imaging Services [address] [place] [address] Upper Ext Joint Only(Routine) MR#: [id number] Acct: [id number] Name: JANI PEREZ Rep #: [id number] : 1960 M 63 From: Scott Saucedo MD PCP: Dr. Erick Daily MD Status: REG CLI Study: Upper Ext Joint Only(Routine) Date of Exam: 07/22/23 Exam# [id number] Ordering Dr: Bolivar Zamarripa ADMINISTRATIVE RECEPTIONIST-C [id number] STUDY: MRI LEFT SHOULDER REASON FOR EXAM: Male, 63 years old. Strain. TECHNIQUE: Standardized fat and water weighted pulse sequences were obtained in all 3 orthogonal planes. COMPARISON: None. FINDINGS: There is a suspected full-thickness tear of the anterior distal supraspinatus tendon insertion, (more content not included)... Normal [facility] Shoulder min 2 Viewson 09-05 Shoulder min 2 Views [facility] [address] [place] [address] Shoulder min 2 Views MR#: [id number] Acct: [id number] Name: JANI PEREZ Rep #: [id number] : 1960 M 63 From: Byron johnson MD PCP: Dr. Erick Daily MD Status: DEP AMB Study: Shoulder min 2 Views Date of Exam: 09/06/23 Exam# [id number] Ordering Dr: Fredrick Santos MD [id number] STUDY: X-RAY - LEFT SHOULDER REASON FOR EXAM: Male, 63 years old. pain TECHNIQUE: 4 view(s) of the shoulder. COMPARISON: MRI 07/22/2023. FINDINGS: Normal glenohumeral articulation. Normal acromioclavicular joint. Normal acromion. Normal humeral head and visualized proximal humerus. The soft tissue structures are unremarkable. There is no demonstrated fracture. Normal visualized pulmonary apex. RAD/Shoulder min 2 Views IMPRESSION: No definite acute or significant abnormality seen. Electronically Signed: Byron Paula MD at 20:21 EDT , CC: Dr. Erick Daily MD; Dr. Fredrick Santos MD Shoes Hand Sewer: Signed Normal [facility] 1,25-dihydroxyvitamin D3 [Ma ss/Vol]on 03-17-2022 VIT D1,25 DIHYDROXY 44.8 pg/mL Normal 19.9-79.3 [facility] Comment on above: Order Comment: Tim lovett Type: BLOOD SPECIMEN Ordering Facility: [facility] Address: [address] [place] [address] Performed By: #### 1 649-3, 12556-6 #### [facility] CLIA [id number] [address] [place] [address] [place] B. burgdorferi IgG+IgM IB Ql (S)on 03-17-2022 B. burgdorferi Ab band pattern IB (S) [Interp] No evidence of antibodies to Borrelia burgdorferi. Normal [facility] Comment on above: Order Comment: Tim lovett Type: BLOOD SPECIMEN Ordering Facility: [facility] Address: [address] [place] [address] Performed By: #### 1 649-3, 32450-5 #### [facility] CLIA [id number] [address] [place] [address] OF [place] B. burgdorferi IgG IB Ql (S) Negative Normal Negative [facility] Comment on above: Order Comment: Specomar lovett Type: BLOOD SPECIMEN Ordering Facility: [facility] Address: [address] [place] [address] Result Comment: [facility] criteria for a positive Western blot are the presence of >=5 bands for IgG. Performed By: #### 1 649-3, 21140-4 #### [facility] [place] [id number] [address] [place] [address] [place] B. burgdorferi IgM band pattern IB (S) [Interp] p-39 Normal [facility] Comment on above: Order Comment: Specomar lovett Type: BLOOD SPECIMEN Ordering Facility: [facility] Address: [address] [place] [address] Performed By: #### 1 649-3, 02096-8 #### [facility] IA [id number] [address] [place] [address] OF [place] B. burgdorferi IgM IB Ql (S) Negative Normal Negative [facility] Comment on above: Order Comment: Specomar lovett Type: BLOOD SPECIMEN Ordering Facility: [facility] Address: [address] [place] [address] Result Comment: [facility] criteria for a positive Western Blot are the presence of >=2 bands for IgM. Performed By: #### 1 649-3, 14701-2 #### [facility] IA [id number] [address] [place] [address] [place] Hemoglobin A1con 02-09-2021 Glucose [Mass/Vol] 111 mg/dL Normal [facility] Comment on above: Performed By: #### H BA1C #### [facility] Routine Lab [address] [place] [address] HbA1c (Bld) [Mass fraction] 5.5 % Normal 4.3-5.6 [facility] Comment on above: Performed By: #### H BA1C #### [facility] Routine Lab [address] [id number] Dermatopathologyon 9 Dermatopathology 3 Pathologist: BRITTANY PATTERSON MD Date of Procedure: 06/02/2018 Date Received: 06/05/2018 Date Reported 06/06/2018 Submitting Physician: ROXANA CORTES MD Location: [facility] FINAL DIAGNOSIS A. SKIN, R EAR CONCHAL BOWL, SHAVE BIOPSY: ACTINIC KERATOSIS, PRESENT ON THE DEEP AND PERIPHERAL MARGIN. B. SKIN, L LATERAL CHEEK, SHAVE BIOPSY: ACTINIC KERATOSIS, PRESENT ON THE DEEP AND PERIPHERAL MARGIN. Electronically Signed Out by BRITTANY PATTERSON M.D. Electronically Signed Out By BRITTANY PATTERSON MD/TIA Microscopic Description: A. Microscopic examination reveals basal layer keratinocyte atypia. B. Microscopic examination reveals basal layer keratinocyte atypia. Clinical History: A: 8mm pink, scaly papule. Qamar derm vs. BCC vs. AK. Shave Biopsy. B: 4mm erythematous, scaly, tender papule. HAK vs. SCCIS vs. SCC. Shave Biopsy. ([facility]) Specimens Submitted As: A: SKIN, R EAR CONCHAL BOWL B: SKIN, L LATERAL CHEEK Gross Description: A: Received in formalin is a aragon piece of skin measuring 4w8t0hi. The specimen is inked and embedded in toto. B: Received in formalin is a aragon piece of skin measuring 4g8l7ob. The specimen is inked and embedded in toto. ink/06/05/2018 [facility] Comment on above: Performed By: #### D #### Dermatopathology Encounters Encounter Date Encounter Type Care Provider Facility Start: 07-19-2024 End: 07-19-2024 ambulatory ARNULFO Andrea [facility] Start: 07-17-2024 End: 07-17-2024 ambulatory Bolivar Zamarripa Facility:[facility] Start: 07-17-2024 End: 07-17-2024 ambulatory Bolivar Zamarripa Facility:[facility] Start: 07-10-2024 End: 07-10-2024 ambulatory Xenia Chidi Facility:[facility] Start: 05-21-2024 ambulatory Xenia Chidi Facility:[facility] Start: 05-14-2024 End: 07-11-2024 [facility] Start: 04-20-2024 End: 04-20-2024 ambulatory Serafin William Facility:[facility] Start: 03-20-2024 End: 03-20-2024 ambulatory Fredrick Mollison Facility:[facility] Start: 03-17-2024 End: 03-17-2024 Emergency department patient visit Julio C Reyna Facility:[facility] Start: 03-05-2024 End: 03-05-2024 ambulatory Fredrick Mollison Facility:[facility] Start: 01-19-2024 End: 01-19-2024 ambulatory Fredrick Mollison Facility:[facility] Start: 10-18-2023 End: 10-18-2023 ambulatory Fredrick Mollison Facility:[facility] Start: 09-06-2023 End: 09-06-2023 ambulatory Fredrick Mollison Facility:[facility] Start: 07-22-2023 End: 07-22-2023 ambulatory [facility] Work Phone: Start: 07-22-2023 End: 07-22-2023 Patient encounter procedure [facility] Work Phone: Start: 07-20-2021 ambulatory Daniella Jimenez [facility] [place] Procedures Date Procedure Procedure Detail Performing Clinician Start: 07-22-2023 MRI of joint of lowe r extremity Plan of Treatment Date Care Activity Detail Author Start: 02-17-2024 LIPID SCREEN LIPID SCREEN [facility] Start: 02-16-2022 DIABETES SCREEN DIABETES SCREEN [facility] Start: 11-26-2021 Influenza vaccination INFLUENZA (Sea son Ended) [facility] Start: 03-30-2020 ANNUAL PCP TEAM INSURANCE VERIFIER MARCOS DISEASE VISIT ANNUAL PCP TEAM CHRONIC DISEASE VISIT [facility] Start: 07-11-2014 PROSTATE CANCER SCRE ENING DISCUSSION PROSTATE CANCER SCREENING DISCUSSION [facility] Start: 07-11-2009 SHINGRIX VACCINE (1 of 2) SHINGRIX V ACCINE (1 of 2) [facility] Start: 07-11-2004 COLOGUARD (FIT-DNA) COLOGUARD (FIT-D NA) [facility] Start: 07-11-2004 Colonoscopy COLONOSCOPY [facility] Start: 07-11-2004 COLORECTAL CANCER SCREENING COLORECTAL CANCER SCREENING [facility] Start: 07-11-[address] COLONOGRAPHY [facility] Start: 07-11-2004 FECAL OCCULT BLOOD FECAL OCCULT BLOO D [facility] Start: 07-11-2004 SIGMOIDOSCOPY SIGMOIDOSCOPY [facility] Start: 07-11-1978 ONE PNEUMOVAX PRIOR TO AGE 65 ONE PNEUMOVAX PRIOR TO AGE 65 [facility] Start: 07-11-1978 Urine microalbumin profile DTAP,TDAP ,TD (1 - Tdap) [facility] Start: 07-11-1977 BP CONTROLLED (<130/80) BP CONTROLLE D (<130/80) [facility] Start: 07-11-1977 HEPATITIS C SCREENING HEPATITIS C SC REENING [facility] Start: 07-11-1977 HIV SCREENING HIV SCREENING [facility] Start: 1971 Adult depression scr eening assessment DEPRESSION SCREENING [facility] Start: 07-11-1964 COVID-19 VACCINE (1) COVID-19 VACCIN E (1) [facility] Payers Date Payer Category Payer Self-pay [id number] 2023 Unknown [id number] 2018 Medicaid [employer] [id number] 2018-Present [phone] [address] [place] [address] Medicaid [id number] 1960 Unknown [id number] 1960 Unknown [id number] Unknown [employer] [id number] Unknown [id number] Unknown [id number] Unknown [id number] [id number] Unknown [id number] [id number] Unknown [id number] [id number] Unknown [id number] [id number] Unknown [id number] [id number] Unknown [id number] [id number] Unknown [id number] [id number] Unknown [id number] [id number] Unknown [id number] [id number] Unknown [id number] Social History Date Type Detail Facility [facility]20[facility] History of tobacco use Cigarette Smoker [facility] Start: 12-20-2018 End: 03-30-2019 Cigarettes smoked current (pack per day) - Reported 1 [facility] Start: 12-20-2018 Tobacco use and exposure User of smokeless tobacco [facility] History of tobacco use Chews Tobacco [facility] Start: 03-30-2019 Alcohol intake Current drinke r of alcohol (finding) [facility] Start: 1960 Sex Assigned At Not on file [facility] Start: 12-22-2018 [facility] Start: 1960 Sex Assigned At Male [facility] Progress note 07-20-2021 Note Date & Type Note Facility 07-20-2021 Note HNO ID: [id number] Author: Daniella Bell Ma Service: ? Author Type: ? Type: Progress Notes Filed: 07/20/2021 2:14 PM Note Text: POPULATION HEALTH NAVIGATION OUTREACH Action/FYI Pt needs to schedule a follow up appt with pcp or retirement village manager Pt identified by name and : YES, via phone Outreach Outcome/Action Unable to reach patient: Phone number not valid / voicemail full Reason for Outreach Care Gap or Scheduling/Wellness visits Payer: Payor: [facility] MEDICAID / Plan: [employer] MEDICA[employer] / Product Type: Medicaid / Care Gap Reviewed:: Follow-up appointment Reminder: Reminder note to check Health Maintenance for items below Health Maintenance items due: COVID-19 VACCINE(1) Never done DEPRESSION SCREENING Never done HEPATITIS C SCREENING Never done HIV SCREENING Never done BP CONTROLLED (<130/80) Never done DTAP,TDAP,TD(1 - Tdap) Never done ONE PNEUMOVAX PRIOR TO AGE 65 Never done COLORECTAL CANCER SCREENING Never done SHINGRIX VACCINE(1 of 2) Never done PROSTATE CANCER SCREENING DISCUSSION Never done ANNUAL PCP TEAM CHRONIC DISEASE VISIT due on 03/30/2020 Message Sent to Practice: Yes Navigation Signature: Daniella Bell Ma July 20, 2021 2:06 PM [facility] History of Present illness Narrative 07-20-2021 Daniella Bell Ma - 07/20/2021 2:05 PM EDT Note Date & Type Note Facility 07-20-2021 History of Presen t illness Narrative POPULATION HEALTH NAVIGATION OUTREACH Action/FYI Pt needs to schedule a follow up appt with pcp or retirement village manager Pt identified by name and : YES, via phone Outreach Outcome/Action Unable to reach patient: Phone number not valid / voicemail full Reason for Outreach Care Gap or Scheduling/Wellness visits Payer: Payor: [facility] MEDICAID / Plan: [employer] MED[employer] / Product Type: Medicaid / Care Gap Reviewed:: Follow-up appointment Reminder: Reminder note to check Health Maintenance for items below Health Maintenance items due: COVID-19 VACCINE(1) Never done DEPRESSION SCREENING Never done HEPATITIS C SCREENING Never done HIV SCREENING Never done BP CONTROLLED (<130/80) Never done DTAP,TDAP,TD(1 - Tdap) Never done ONE PNEUMOVAX PRIOR TO AGE 65 Never done COLORECTAL CANCER SCREENING Never done SHINGRIX VACCINE(1 of 2) Never done PROSTATE CANCER SCREENING DISCUSSION Never done ANNUAL PCP TEAM CHRONIC DISEASE VISIT due on 03/30/2020 Message Sent to Practice: Yes Navigation Signature: Daniella Bell Ma July 20, 2021 2:06 PM documented in this encounter [facility] Clinical Note 07-20-2021 Note Date & Type Note Facility 07-20-2021 Note Patient Outreach (FA MPWS) JANI PEREZ ([id number]) 1960 M Date Time Provider Department 07/20/21 ARMAND SCHNEIDER During your visit today, we recorded the following information about you: Armand Schneider APRN.CNP 07/20/2021 2:05 PM Signed STAMP Please reach out to patient for overdue appointment for chronic disease management with myself, Dr. Daily, or Collette Herron. Labs are ordered. If he/she is no longer following with Dr. Daily, please remove name from PCP field. Armand Schneider APRN.CNP Allergies As of Date: 07/20/2021 (No Active Allergies) Date Reviewed: 03/30/2019 Reviewed by: Armand Schneider - Fully Assessed Primary Visit Diagnosis:Hypertension, essential [I10] Other Visit Diagnoses:Hyperlipidemia, mixed [E78.2] Paroxysmal atrial fibrillation (HCC) [I48.0] Order(s):COMP METABOLIC PANEL [SQCMP] Order #: [id number] FUTURE LIPID PANEL BASIC [SQLIPB] Order #: [id number] FUTURE CBC + DIFF [SQCBCDIF] Order #: [id number] FUTURE Prescriptions as of 07/20/2021 - hydroCHLOROthiazide (HYDRODIURIL, ESIDRIX) 25 mg tablet Take 1 tablet by mouth once daily. For Blood Pressure - amLODIPine (NORVASC) 10 mg tablet Take 1 tablet by mouth once daily. For Blood Pressure - atorvastatin (LIPITOR) 20 mg tablet Take 1 tablet by mouth once daily. For Cholesterol - lisinopril (ZESTRIL, PRINIVIL) 5 mg tablet Take 1 tablet by mouth once daily. For Blood Pressure - warfarin (COUMADIN) 4 mg tablet Take 1 tablet by mouth once daily. Or as directed. - metoprolol succinate ER (TOPROL XL) 50 mg 24 hr tablet Take 1 tablet by mouth once daily. For Blood Pressure - FLUoxetine (PROZAC) 20 mg capsule Take 1 capsule by mouth once daily. - warfarin (COUMADIN) 1 mg tablet Take 1 tablet by mouth daily as directed. Problem List As Of Date 07/20/2021 Noted Resolved Paroxysmal atrial fibrillation (HCC) [I48.0] 12/27/2018 Encounter for monitoring bridging anticoagulati*12/27/2018 SCC (squamous cell carcinoma), trunk [C44.529] 12/27/2018 HTN (hypertension) [I10] Persistent atrial fibrillation [I48.19] Hyperlipemia [E78.5] JODEE (obstructive sleep apnea) [G47.33] Encounter Status:Closed by DANIELLA BELL MA on 07/20/21 [facility] Clinical Note 07-20-2021 Note Date & Type Note Facility 07-20-2021 Note Patient Outreach (KENNY PRINCE) JANI PEREZ ([id number]) 1960 M Date Time Provider Department 07/20/21 DANIELLA BELL During your visit today, we recorded the following information about you: Daniella Bell Ma 07/20/2021 2:14 PM Signed POPULATION HEALTH NAVIGATION OUTREACH Action/FYI Pt needs to schedule a follow up appt with pcp or retirement village manager Pt identified by name and : YES, via phone Outreach Outcome/Action Unable to reach patient: Phone number not valid / voicemail full Reason for Outreach Care Gap or Scheduling/Wellness visits Payer: Payor: [facility] MEDICAID / Plan: [facility] MEDICAID / Product Type: Medicaid / Care Gap Reviewed:: Follow-up appointment Reminder: Reminder note to check Health Maintenance for items below Health Maintenance items due: COVID-19 VACCINE(1) Never done DEPRESSION SCREENING Never done HEPATITIS C SCREENING Never done HIV SCREENING Never done BP CONTROLLED (<130/80) Never done DTAP,TDAP,TD(1 - Tdap) Never done ONE PNEUMOVAX PRIOR TO AGE 65 Never done COLORECTAL CANCER SCREENING Never done SHINGRIX VACCINE(1 of 2) Never done PROSTATE CANCER SCREENING DISCUSSION Never done ANNUAL PCP TEAM CHRONIC DISEASE VISIT due on 03/30/2020 Message Sent to Practice: Yes Navigation Signature: Daniella Bell Ma July 20, 2021 2:06 PM Allergies As of Date: 07/20/2021 (No Active Allergies) Date Reviewed: 03/30/2019 Reviewed by: Armand ([facility]) William - Fully Assessed Prescriptions as of 07/20/2021 - hydroCHLOROthiazide (HYDRODIURIL, ESIDRIX) 25 mg tablet Take 1 tablet by mouth once daily. For Blood Pressure - amLODIPine (NORVASC) 10 mg tablet Take 1 tablet by mouth once daily. For Blood Pressure - atorvastatin (LIPITOR) 20 mg tablet Take 1 tablet by mouth once daily. For Cholesterol - lisinopril (ZESTRIL, PRINIVIL) 5 mg tablet Take 1 tablet by mouth once daily. For Blood Pressure - warfarin (COUMADIN) 4 mg tablet Take 1 tablet by mouth once daily. Or as directed. - metoprolol succinate ER (TOPROL XL) 50 mg 24 hr tablet Take 1 tablet by mouth once daily. For Blood Pressure - FLUoxetine (PROZAC) 20 mg capsule Take 1 capsule by mouth once daily. - warfarin (COUMADIN) 1 mg tablet Take 1 tablet by mouth daily as directed. Problem List As Of Date 07/20/2021 Noted Resolved Paroxysmal atrial fibrillation (HCC) [I48.0] 12/27/2018 Encounter for monitoring bridging anticoagulati*12/27/2018 SCC (squamous cell carcinoma), trunk [C44.529] 12/27/2018 HTN (hypertension) [I10] Persistent atrial fibrillation [I48.19] Hyperlipemia [E78.5] JODEE (obstructive sleep apnea) [G47.33] Encounter Status:Closed by DANIELLA BELL MA on 07/20/21 [facility] Progress note 07-20-2021 Note Date & Type Note Facility 07-20-2021 Note HNO ID: [id number] Author: Armand Schneider APRN.CNP Service: ? Author Type: Nurse Practitioner Type: Progress Notes Filed: 07/20/2021 2:05 PM Note Text: STAMP Please reach out to patient for overdue appointment for chronic disease management with myself, Dr. Daily, or Collette Herron. Labs are ordered. If he/she is no longer following with Dr. Daily, please remove name from PCP field. Armand Schneider APRN.SHAE [facility] Evaluation note Note Date & Type Note Facility Evaluation note No assessment information availa [facility] Work Phone: Summary Purpose Family History No Family History Records FoundNo Family History Records FoundNo Family History Records FoundNo Family History Records FoundNo Family History Records Found Advance Directives No Advanced Directives Records Found Advance Directive Response Recorded Date/ Time Living Will No December 22, 2018 3:07pm Power of Transportation Solutions Manager No November 3:07pm Chief Complaint and Reason for Visit Chief Complaint LEFT SHOULDER STRAIN Additional Source Comments (unrecognized sect ion and content) No Status Records FoundNo Status Records FoundNo Status Records FoundNo Status Records FoundNo Status Records Found INFORMATION SOURCE (unrecogn ized section and content) DATE CREATED AUTHOR 12/04/2018 [facility] DATE CREATED AUTHOR AUTHOR'S ORGANIZ ATION 02/09/2021 [facility] DATE CREATED AUTHOR AUTHOR'S ORGANIZ ATION 03/21/2022 [facility] DATE CREATED AUTHOR AUTHOR'S ORGANIZ ATION 07/20/2024 [facility] DATE CREATED AUTHOR AUTHOR'S ORGANIZ ATION 08/25/2024 [facility] Source Comments (unrecognize d section and content) In the event this informatio n is protected by the Federal Confidentiality of Alcohol and Drug Abuse Patient Records regulations: The Federal rules restrict any use of the information to criminally investigate or prosecute any alcohol or drug abuse patient.[facility] Care Teams (unrecognized sec tion and content) Sheet Metal Helper Relationship Specialty Start Date End Date Erick Daily MD [address] [place] [address] PCP - General Family Practice 02/19/19 Team Status: Active Member Role Status Dates Dr. Erick Daily MD Family Provider Active Dr. Erick Daily MD Primary Care Provider Active Team Status: Inactive Member Role Status Dates Dr. Erick Daily MD Primary Care Provider Active Bolivar Zamarripa NP-C Attending Provider, Referr ing Provider Active Goals (unrecognized section and content) Goals may be documented in a n alternate section FOR RECORDS PERTAINING TO PATIENTS WHO ARE OR HAVE BEEN ENROLLED IN A CHEMICAL DEPENDENCY/SUBSTANCEABUSE PROGRAM, SOME INFORMATION MAY BE OMITTED. This clinical summary was aggregated from multiple sources. Caution should be exercised in using it in the provision of clinical care. This summary normalizes information from multiple sources, and as a consequence, information in this document may materially change the coding, format and clinical context of patient data. In addition, data may be omitted in some cases. CLINICAL DECISIONS SHOULD BE BASED ON THE PRIMARY CLINICAL RECORDS. [employer] provides no warranty or guarantee of the accuracy or completeness of information in this document.
--- NOTE | 2024-09-15 07:24 | MRI_ITS ---
PROCEDURE: SPINE CERVICAL (ROUTINE) 09/15/2024 REASON FOR EXAM: RADICULOPATHY TECHNIQUE: Multiplanar and multisequence images were obtained without IV contrast administration. COMPARISON: 04-24-2024 FINDINGS: Straightening of cervical spine curve denoting muscle spasm. Preserved vertebral bodies height. No vertebral fractures or dislocation. Normal craniometric measures of the craniovertebral junction Cervical spondylodegenerative changes evident by multilevel anterior marginal osteophytic lipping and subchondral degenerative marrow signal/Modio II of the examined vertebral end plates with variable degrees of reduced bright T2 signal of the intervertebral discs with faint Modic type I changes of C6-C7 vertebral end plate. C1-C2: Atlantodens interval is preserved. Odontoid process and atlantoaxial joint appear normal. Mild atlanto-axial degenerative changes. C2-C3: There is no significant disc pathology. Normal morphology of the ligamentum flava. No arthropathy of the uncovertebral joints. No significant spinal canal stenosis noted. C3-C4: a diffuse disc bulge with a 2 mm right foraminal disc protrusion along with bilateral uncovertberal arthropathy indenting the theca encroaching upon the related neural exit foramina inducing moderate to marked right and moderate left exiting nerve roots compression. C4-C5: a diffuse disc bulge with a 2 mm right foraminal disc protrusion along with bilateral uncovertberal arthropathy indenting the theca encroaching upon the related neural exit foramina inducing moderate to marked right and moderate left exiting nerve roots compression. C5-C6: a diffuse disc bulge with a 2.5 mm left foraminal disc protrusion along with bilateral uncovertberal arthropathy indenting the theca encroaching upon the related neural exit foramina inducing marked left and moderate right exiting nerve roots compression. C6-C7: a diffuse disc bulge with a 2.5 mm left foraminal disc protrusion along with bilateral uncovertberal arthropathy indenting the theca encroaching upon the related neural exit foramina inducing marked left and moderate right exiting nerve roots compression. C7-T1: There is no significant disc pathology. Normal morphology of the ligamentum flava. No arthropathy of the uncovertebral joints. No significant spinal canal stenosis noted. Normal appearance of the examined cervical cord and cranio-cervical junction. No marrow infiltrative lesions. No paraspinal soft tissue masses. MRI/Spine Cervical (Routine) IMPRESSION: Straightening of cervical curve denoting myospasm. Cervical spondylodegenerative changes with multilevel disc changes along with u ncovertberal arthropathy inducing neural foraminal compromise as detailed. Reading [facility]
== END | disposition home or self-care (01) ==
LOC: MRI 07:16
PROVIDERS: PCP Nurse Practitioner Family; Referring Provider Anesthesiology; Visit Provider Anesthesiology
DX: M54.12 Radiculopathy, cervical region (principal)
CPT/HCPCS: 72141

== ENCOUNTER → 2024-12-24 | Outpatient (CLI) | payer MEDICARE, MEDICAID, SELFPAY ==
--- OUTSIDE RECORDS SUMMARY | 2024-07-19 17:17 | XMS RPT_ITS ---
Author Name Auto Generated Organization [facility] Care Team Providers Care Public Relations Counselor Name Role Phone BOLIVAR LOPEZ APRN Consulting Unavailable TANGELA WILLIAM MD Admitting Unavailable TANGELA WILLIAM MD Primary Care Unavailable TANGELA WILLIAM MD Attending Unavailable PROVIDER, UNKNOWN Consulting Unavailable ARNULFO ALEJANDRO Admitting Unavailable ARNULOF ALEJANDRO Primary Care Unavailable ARNULFO ALEJANDRO Attending Unavailable BOLIVAR LOPEZ APRN Consulting Unavailable PROVIDER, UNKNOWN Consulting Unavailable PROBLEMS DATE TYPE CONDITION / CODE ATTENDING STATUS [facility] 07/19/2024 Principle Diagnosis Hyperlipidemia, unspecified / E785(ICD-10) ARNULFO ALEJANDRO Active [facility] 07/19/2024 Secondary Diagnosis Essential (primary) hypertension / I10(ICD-10) ARNULFO ALEJANDRO Active [facility] 05/14/2024 Admitting Diagnosis Radiculopathy, cervical region / M5412(ICD-10) TANGELA WILLIAM MD [facility] 05/14/2024 Principle Diagnosis Radiculopathy, cervical region / M5412(ICD-10) TANGELA WILLIAM MD [facility] 05/14/2024 Secondary Diagnosis Complete rotator cuff tear or rupture of left shoulder, not specified as traumatic / [id number](ICD-10) TANGELA WILLIAM MD [facility] PROCEDURES No Procedure Records Found RESULTS CMP WITH EGFR Collected: 10:50 AM Status: F Source: [facility] TYPE CODE TESTS RESULT OUT OF RANGE REFERENCE UNITS LAB CMP with eGFR(LOINC) CMP with eGFR Result Comment: COMPREHENSIV E METABOLIC PANEL LAB SODIUM(LOINC) SODIUM 144 136 - 145 mmol/l LAB POTASSIUM(LOIN C) POTASSIUM 3.3 Low 3.5 - 5.1 mmol/L LAB CHLORIDE(LOINC ) CHLORIDE 106 98 - 107 mmol/L LAB CO2(LOINC) CO2 28.8 21.0 - 32.0 mmol/L LAB GLUCOSE(LOINC) GLUCOSE 103 74 - 106 mg/dl LAB BUN(LOINC) BUN 23 High 7 - 18 mg/dl LAB CREATININE(MANUEL NC) CREATININE 1.10 0.70 - 1.30 mg/dl LAB AST/SGOT(LOINC ) AST/SGOT 29 15 - 37 U/L LAB ALK PHOS(LOINC) ALK PHOS 81 46 - 116 U/L LAB CALCIUM(LOINC) CALCIUM 9.3 8.5 - 10.1 mg/dl LAB TOTAL PROTEIN(LOINC) TOTAL PROTEIN 7.0 6.4 - 8.2 g/dl LAB ALBUMIN(LOINC) ALBUMIN 3.9 3.4 - 5.0 g/dL LAB GLOBULIN(LOINC ) GLOBULIN 3.1 1.5 - 3.8 G/DL LAB A/G RATIO(LOINC) A/G RATIO 1.3 0.9 - 1.6 LAB TOTAL BILI(LOINC) TOTAL BILI 0.9 0.2 - 1.0 mg/dl LAB B/C RATIO(LOINC) B/C RATIO 21 0 - 30 ratio LAB ALT/SGPT(LOINC ) ALT/SGPT 29 16 - 63 U/L LAB ANION GAP(LOINC) ANION GAP 13 10 - 20 mmol/L LAB AGE(LOINC) AGE 64 years LAB eGFR(LOINC) eGFR >60 60 - 999 ML/MINUT E LAB eGFR(AA)(LOINC ) eGFR(AA) >60 60 - 999 ML/MINUT E Result Comment: ACCORDING TO THE NATIONAL KIDNEY DISEASE EDUCATION PROGRAM(NKDE), A NORMAL eGFR IS A VALUE GREATER THAN OR EQUAL TO 60 ML/MIN/1.73 SQ METERS. CHRONIC KIDNEY DISEASE: <60mL/MIN/1.73 SQ METERS KIDNEY FAILURE: <15mL/MIN/1.73 SQ METERS THIS TEST SHOULD ONLY BE USED FOR PATIENTS 18 YEARS OF AGE AND OLDER. Performed By: #### [id number] ## ## [place] [id number] LIPID PROFILE Collected: 07/19/2024 10:50 AM Status: F Source: [facility] TYPE CODE TESTS RESULT OUT OF RANGE REFERENCE UNITS LAB LIPID PROFILE(LOINC) LIPID PROFILE Result Comment: LIPID PROFIL E LAB TRIGLYCERIDE(MANUEL NC) TRIGLYCERIDE 67 0 - 150 mg/dl LAB CHOLESTEROL(LOIN C) CHOLESTEROL 111 0 - 240 mg/dl LAB HDL(LOINC) HDL 53 40 - 60 mg/dl LAB CHOL/HDL(LOINC) CHOL/HDL 2.1 0.0 - 5.0 LAB LDL(LOINC) LDL 45 0 - 129 mg/dl Performed By: #### [id number] ## ## [place] [id number] CBC + DIFF Collected: 10:50 AM Status: F Source: [facility] TYPE CODE TESTS RESULT OUT OF RANGE REFERENCE UNITS LAB CBC + DIFF(LOINC) CBC + DIFF Result Comment: CBC-COMPLETE BLOOD COUNT LAB WBC(LOINC) WBC 6.7 4.5 - 10.8 x 10EE3/UL LAB RBC(LOINC) RBC 4.90 4.50 - 6.00 x 10EE6/UL LAB HEMOGLOBIN(MANUEL NC) HEMOGLOBIN 14.7 13.0 - 17.5 g/dl LAB HEMATOCRIT(MANUEL NC) HEMATOCRIT 42.6 40.0 - 52.0 % LAB MCV(LOINC) MCV 87 81 - 98 fl LAB MCH(LOINC) MCH 30 27 - 33 pg LAB MCHC(LOINC) MCHC 34 32 - 36 X10 3 LAB RDW/CV(LOINC) RDW/CV 13.5 12.0 - 15.6 % LAB PLATELET(LOINC ) PLATELET 165 150 - 450 x10EE3/UL LAB MPV(LOINC) MPV 10.9 High 6.4 - 10.5 fl Result Comment: AUTOMATED DI FFERENTIAL LAB NEUT %(LOINC) NEUT % 64.7 46.0 - 76.0 % LAB LYMPH %(LOINC) LYMPH % 24.2 20.0 - 45.0 % LAB MONOS %(LOINC) MONOS % 8.3 0.0 - 10.0 % LAB EO %(LOINC) EO % 2.6 0.0 - 7.0 % LAB BASO %(LOINC) BASO % 0.3 0.0 - 2.0 % LAB Lymph #(LOINC) Lymph # 1.61 0.80 - 2.80 x10EE 3/UL LAB Neut #(LOINC) Neut # 4.32 1.50 - 7.10 x10EE3 /UL LAB Forest #(LOINC) Forest # 0.55 0.20 - 1.00 x10EE3 /UL LAB EO #(LOINC) EO # 0.17 0.00 - 0.50 x10EE3/U L LAB Baso #(LOINC) Baso # 0.02 0.00 - 0.10 x10EE3 /UL LAB MANUAL DIFF(LOINC) MANUAL DIFF N/A LAB MORPHOLOGY(MANUEL NC) MORPHOLOGY N/A Performed By: #### [id number] ## ## [facility],[address] [place], [place] [id number] ALLERGIES DATE TYPE / CODE NAME / CODE REACTION SEVERITY SOURCE Miscellaneous Allergy/[id number](SN ED CT) No Known Drug Allergies Moderate (Severity Modifier) (Qualifier Value) [facility] ENCOUNTERS ADMIT/DISCHARGE ACCOUNT NUMBER ADMITTING ENCOUNTER CLASS LOCATION SOURCE 07/19/2024/ 5 [id number] ARNULFO ALEJANDRO Ambulatory Building:[place] 05/14/2024/ 5 [id number] TANGELA WILLIAM MD Ambulatory Building:[place] PAYERS ENCOUNTER GUARANTOR PAYER SUBSCRIBER SOURCE 07/19/2024 JANI RINCONB: [place], [place] [address]Sny: () [facility]: [id number] Date: JANI RINCONB: [id number] [place] [address] [facility] 05/14/2024 JANI RINCON: [place], [place] [address]Gpj: () Primary Insurance:[employer] RECURRINGPolicy Number: [id number] Date:Plan Name:Romina RINCONB: [id number] [place] [address] [facility] 05/14/2024 Secondary Insurance:[employer] RECURRINGPolicy Number: [id number] Date:Plan Name:Romina PEREZB: [id number] [place] [address] [facility]
--- NOTE | 2024-12-24 06:06 | ECHOCS_ITS ---
Reason For Study Reason For Study: ASHD Procedure This was a 2D Doppler, Color Flow transthoracic echocardiogram. The study was technically difficult. Contrast injection was performed. Exam performed in department. Left Ventricle Normal size and thickness. Mild generalized LV hypokinesis. Estimated LVEF 40- 45%. At least stage I diastolic dysfunction. Right Ventricle Normal right ventricle. Atria There is mild biatrial dilatation. Mitral Valve Mild (1+) mitral valve insufficiency. Tricuspid Valve Mild (1+) tricuspid valve insufficiency. Normal pulmonary artery pressure. Aortic Valve Trisinus/trileaflet aortic valve. Pulmonic Valve The pulmonic valve is not well visualized. Great Vessels Normal sized aortic root. Pericardium/Pleural No pericardial effusion. Medication 22 gauge I.V. with prn adaptor inserted into right arm. Diluted definity 2.5ml given slow IV push to enhance endocardial definition. MMode/2D Measurements & Calculations LVIDd: 4.9 cm IVSd: 1.0 cm Ao root diam: 3.6 cm LVIDs: 3.7 cm LVPWd: 1.3 cm RVDd: 4.1 cm FS: 24.7 % LAV(MOD-bp): 87.2 ml LVAd ap4: 34.1 cm2 SV(MOD-sp4): 60.8 ml LAV(MOD-bp) Indexed: 37.8 ml/m2 LVLd ap4: 8.3 cm SI(MOD-sp4): 26.4 ml/m2 LAV(MOD-sp2): 80.2 ml EDV(MOD-sp4): 116.2 ml LAV(MOD-sp4): 92.6 ml EDV(sp4-el): 118.9 ml LVAs ap4: 22.0 cm2 LVLs ap4: 7.2 cm ESV(MOD-sp4): 55.4 ml ESV(sp4-el): 56.9 ml EF(MOD-sp4): 52.3 % EF(sp4-el): 52.2 % SV(sp4-el): 62.0 ml LA A4 area: 28.4 cm2 LA dimension(2D): 4.6 cm RA A4 area: 28.8 cm2 Doppler Measurements & Calculations MV E max aleksandar: 125.8 cm/sec MV V2 max: 123.7 cm/sec Ao V2 max: 86.7 cm/sec MV max P.1 mmHg Ao max P.0 mmHg MV V2 mean: 56.0 cm/sec Ao V2 mean: 64.5 cm/sec MV mean P.7 mmHg Ao mean P.9 mmHg MV V2 VTI: 23.2 cm Ao V2 VTI: 19.2 cm AV (velocity ratio): 0.82 LV V1 max: 75.4 cm/sec PA V2 max: 70.9 cm/sec TR max aleksandar: 270.1 cm/sec LV V1 max P.3 mmHg TR max P.3 mmHg LV V1 mean P.4 mmHg LV V1 mean: 54.6 cm/sec LV V1 VTI: 15.9 cm ECHO/Echo Complete W/ Contrast Interpretation Summary Mild generalized LV hypokinesis. Estimated LVEF 40-45%. At least stage I diasto lic dysfunction. There is mild biatrial dilatation. Mild (1+) mitral valve insufficiency. Mild (1+) tricuspid valve insufficiency. Ordering Physician: Xenia Murillo Referring Physician: Xenia Murillo Performed By: Les Gan [facility]
--- NOTE | 2024-12-27 15:43 | STRESSREP_ITS ---
Stress Test Report Date: 12/24/2024 Procedure: Pharmacologic stress nuclear imaging study Indications: Atrial fibrillation Consent: Per the patient Procedure: The patient underwent pharmacologic (Regadenoson 0.4mg ) evaluation with a peak heart rate of 97 beats per minute (62%predicted maximal heart rate) and a peak blood pressure of 148/98 mmHg. The baseline ECG demonstrated atrial fibrillation. The peak pharmacologic ECG did not show any ischemic changes. Baseline atrial fibrillation. There was no complaint of chest discomfort during pharmacologic infusion or recovery. The patient was injected with 15.0 millicuries of technetium 99m Cardiolite and subsequently rest SPECT Cardiolite nuclear imaging was obtained in the horizontal long, vertical long, and short axis views. The patient underwent pharmacologic (Regadenoson) evaluation. The patient was injected with 45.0 millicuries of technetium 99m Cardiolite and subsequently stress SPECT Cardiolite nuclear imaging was obtained in the horizontal long, vertical long, and short axis views. A gated Cardiolite study at peak stress was obtained. The examination was stopped secondary to completion of protocol. Rest and stress SPECT Cardiolite nuclear imaging status post realignment, normalization, and attenuation correction demonstrate mildly reduced perfusion of the anterior wall post pharmacological stress. There is end systolic thickening and brightening. The gated Cardiolite study demonstrates myocardial thickening and inward wall motion. The reported LVEF is 58%. Impression: 1. Pharmacologic (Regadenoson) evaluation 2. Peak pharmacologic ECG with no ischemic changes. 3. Baseline atrial fibrillation. 5. Mildly reduced perfusion of the anterior wall post pharmacological stress, suggestive of mild ischemia.. 6. The gated Cardiolite study reports an LVEF of 58%. This note was generated with [employer] software. It may contain incorrect words, spelling, and punctuation that were not noted in checking the note before signing.
== END | disposition home or self-care (01) ==
PROVIDERS: PCP Nurse Practitioner Family; Referring Provider Internal Medicine Cardiovascular Disease; Visit Provider Internal Medicine Cardiovascular Disease
DX: I25.10 Atherosclerotic heart disease of native coronary artery without angina pectoris (principal); I10 Essential (primary) hypertension; E78.5 Hyperlipidemia, unspecified
CPT/HCPCS: 78452; 93017; 93306; A9500; Q9957; A4216; C8929; J2785